=== PATIENT | male | born 1950 | race Caucasian/White ===

== ENCOUNTER 2016-11-04 16:35 | Inpatient (IN) ==
--- NOTE | 2016-11-04 18:54 | Emergency Department Note ---
Disposition Clinical Impression: Confusion, Asterixis, Acute kidney injury, Thrombocytopenia Altered mental status Qualifiers: Altered mental status type: unspecified Qualified Code(s): R41.82 - Altered mental status, unspecified Disposition: Admitted As Inpatient Condition: Good Time of Disposition: 21:59 Altered Mental Status HPI - General Chief Complaint: ED Altered Mental Status Stated Complaint: Lethargic, confused Time Seen by Provider: 11/04/16 18:21 Source: patient, family Limitations: no limitations Nursing Notes Reviewed: Yes Vital Signs Reviewed: Yes - History of Present Illness HPI Narrative: 66-year-old male history of cirrhosis, esophageal varices status post banding, history of hepatic encephalopathy presents with confusion weakness. Patient is unable to provide a significant history. is at bedside to assist. Patient was seen and evaluated by his hematologists earlier today. No labs are drawn at that time was recommended to come here for further evaluation. Why states he has been more week and confused over the past several days. He has been weak since August when he had esophageal banding. He has been progressively weaker as well as not acting quite himself. There is reports of some visual hallucinations as well. She denies any recent fever or cough. Patient denies any pain such as chest pain, abdominal pain or shortness of breath. His abdomen is soft and nontender nondistended. He has a febrile here. There is no concern for spontaneous bacterial peritonitis at this time. He is alert and oriented to person only. He does have some asterixis and scleral ictera. CT head, EKG basic labs. Will also get liver enzymes and ammonia level. Patient is on lactulose has been taken 3 times a day. MD complaint: altered mental status, confusion, weakness - Related Data Home Medications Medication Instructions Recorded Confirmed Furosemide [Lasix] 40 mg PO DAILY 02/24/15 11/04/16 Spironolactone [Aldactone] 25 mg PO DAILY 02/24/15 11/04/16 Cholecalciferol (D-3) [Vitamin D] 1,000 unit PO DAILY 11/04/16 11/04/16 DULoxetine [Cymbalta] 30 mg PO HS 11/04/16 11/04/16 Lactulose 10 gm PO TID 11/04/16 11/04/16 Multivitamin [Multi-Day Vitamins] 1 each PO DAILY 11/04/16 11/04/16 OxyCODONE Immed Rel [Roxicodone 5 5 mg PO Q4H PRN 11/04/16 11/04/16 MG] Oxycodone HCl 10 mg PO Q4H PRN 11/04/16 11/04/16 Pantoprazole Sodium [Protonix] 40 mg PO QAM 11/04/16 11/04/16 Propranolol [Inderal] 20 mg PO TID 11/04/16 11/04/16 Allergies Allergy/AdvReac Type Severity Reaction Status Date / Time aspirin [ASA] AdvReac See Verified 02/18/15 10:11 Comments BACTRIM AdvReac Unknown UNKNOWN Uncoded 02/24/15 15:16 Review of Systems: As Per HPI Limitations: ROS unobtainable due to patients medical condition Past Medical History - Past Medical History Source: obtained from family Medical history: Reports: arthritis, GERD, hypertension, liver disease Surgical history: Reports: appendectomy, hip replacement Psychiatric history: Reports: anxiety, depression - Social History Smoking Status: Former smoker Smokeless Tobacco Status: No Alcohol use: Reports: none, heavy, recent Drug use: Reports: none Physical Exam - General Limitations: no limitations General appearance: alert, in no apparent distress - Head Head exam: atraumatic, normocephalic, normal inspection - Eye Eye exam: Present: normal appearance, EOMI, scleral icterus - ENT ENT exam: normal exam, normal oropharynx, mucous membranes moist - Neck Neck exam: Present: normal inspection, full ROM - Chest Chest inspection: Present: normal inspection, symmetric chest wall rise. Absent : tenderness - Respiratory Respiratory exam: Present: normal lung sounds bilaterally - Cardiovascular Cardiovascular exam: Present: regular rate, normal rhythm, normal heart sounds - Abdominal Exam Abdominal exam: Present: soft, Non-Tender, normal bowel sounds, organomegaly. Absent: tenderness, distention, guarding, rebound, rigidity, Escobedo's sign, Rovsing's sign, tenderness at McBurney's Point - Expanded Lower Extremity Exam Gait: unable to bear weight - Neurological Exam Neurological exam: Present: alert - Expanded Neurological Exam Patient oriented to: Present: person. Absent: place, time Cerebellar function: wide-based gait (shuffling with assistance of 2 providers) - Skin Skin exam: Present: warm, dry, intact, normal color, pallor, other (mild jaundice appearance) Course - Reevaluation(s) Reevaluation #1: Patient's only alert and oriented to himself. This appears to be near his baseline. is in the room states he has more confused with a antiglare. Patients afebrile. His abdomen is nondistended nontender. I do not suspect spontaneous bacterial peritonitis. He has some asterixis on examination to consider hepatic encephalopathy. He has been taking lactulose 3 times a day. They deny any recent fall or trauma. Altered mental status workup initiated with LFT and ammonia level.. He has a slight elevation of his total bilirubin 2.5. It has been elevated significantly in the past. His creatinine level is also elevated 1.45 peers consistent with a acute kidney injury. The BUN is not significantly elevated to believe that this is a uremic encephalopathy. His ammonia levels within normal limits this could likely be contributing to his altered mental status. He may need adjustment of his lactulose. He has a chronic thrombocytopenia is higher than the past. Otherwise he has no obvious signs of infection. Urinalysis shows positive for opiates and benzo which is consistent with his home medication. Patient will be admitted for further evaluation and management. Impression is altered mental status, confusion, chronic thrombocytopenia and suspected hepatic encephalopathy. Time: 22:32 - Consultations Consultation #1: Spoke with on-call hospitalist luis Conde to admit for confusion, AMS, asterixis, STERLING, suspect hepatic encephalopathy. No further orders at this time Time: 22:00 Vital Signs Temperature 97.4 F L 11/04/16 17:00 Pulse Rate 62 11/04/16 17:00 Respiratory Rate 14 11/04/16 17:00 Blood Pressure 109/70 11/04/16 17:00 O2 Sat by Pulse Oximetry 94 11/04/16 17:00 Temperature 97.4 F L 11/04/16 17:00 Pulse Rate 64 11/04/16 22:26 Respiratory Rate 16 11/04/16 22:42 Blood Pressure 110/60 11/04/16 22:42 O2 Sat by Pulse Oximetry 98 11/04/16 22:26 Oxygen Delivery Oxygen Delivery Room Air Altered Mental Status - Medical Records Medical records reviewed: Yes I reviewed the patient's medical records. - Lab Data Lab results reviewed: Yes I reviewed the patient's lab results. Result diagrams: 11/04/16 18:57 11/04/16 18:57 Lab Results 11/04/16 11/04/16 11/04/16 Range/Units 18:57 18:57 18:57 WBC 5.2 (4.3-11.1) K/mcL RBC 4.21 (4.19-5.50) M/mcL Hgb 12.3 L (12.9-16.9) g/dL Hct 37.6 (37.5-50.1) % MCV 89.3 (83.0-100.0) fL MCH 29.2 (28.0-33.3) pg MCHC 32.7 (31.6-35.5) g/dL RDW 17.8 H (11.5-14.5) % Plt Count 95 L (140-400) K/mcL MPV 10.0 (9.4-12.4) fL Immature Gran % 0.2 (0-4) % Seg Neutrophils % 42.5 % Lymphocytes % 35.4 % Monocytes % 16.0 % Eosinophils % 4.6 % Basophils % 1.3 % Neutrophils # 2.2 (1.6-8.9) K/mcL Lymphocytes # 1.8 (0.6-4.6) K/mcL Monocytes # 0.8 (0.0-1.3) K/mcL Eosinophils # 0.2 (0.0-0.6) K/mcL Basophils # 0.1 (0.0-0.2) K/mcL Platelet Estimate Decreased L (Normal) Immature Plt Fraction 2.9 (1.1-6.1) % Sodium 135 L (136-145) mEq/L Potassium 4.2 (3.5-4.5) mEq/L Chloride 103 (98-109) mEq/L Carbon Dioxide 25 (19-29) mEq/L BUN 24 (8-26) mg/dL Creatinine 1.45 H (0.72-1.25) mg/dL Est GFR ( Amer) 59 L (> 60) Est GFR (Non-Af Amer) 48 L (> 60) BUN/Creatinine Ratio 17 (6-26) Glucose 125 H (70-99) mg/dL Calculated Osmolality 286 (280-300) Calcium 10.1 (8.6-10.8) mg/dL Total Bilirubin (0.2-1.2) mg/dL Direct Bilirubin (0.0-0.5) mg/dL Indirect Bilirubin (0.0-1.2) mg/dL AST (5-34) Units/L ALT (0-55) Units/L Alkaline Phosphatase (38-126) Units/L Ammonia (18-72) mcmol/L Troponin I 0.01 (0-0.03) ng/mL Serum Total Protein (6.0-8.3) g/dL Albumin (3.5-5.0) g/dL Globulin (2.4-3.5) g/dL Albumin/Globulin Ratio (1.1-2.2) Urine Color (Yellow) Urine Clarity (Clear) Urine pH (5.0-8.0) pH Units Ur Specific [place] (1.010-1.025) Urine Protein (Neg-Trace) mg/dL Urine Glucose (UA) (Normal) mg/dL Urine Ketones (Negative) mg/dL Urine Blood (Negative) Urine Nitrite (Negative) Urine Bilirubin (Negative) Urine Urobilinogen (Normal) mg/dL Ur Leukocyte Esterase (Negative) Urine Microscopic RBC (0-3) per hpf Urine Microscopic WBC (0-3) per hpf Ur Squamous Epith Cells (None-Few) per lpf Urine Bacteria (None-Few) per hpf Hyaline Casts (None-Few) per lpf Urine Yeast Ur Culture Indicated? (NO) Urine Opiates Screen (Mjbpix=361) ng/mL Ur Barbiturates Screen (Qhfzrg=710) ng/mL Ur Phencyclidine Scrn (Cutoff=25) ng/mL Ur Amphetamines Screen (Xltrmb=2198) ng/mL U Benzodiazepines Scrn (Twlgua=843) ng/mL Urine Cocaine Screen (Cutoff= 300) ng/mL U Marijuana (THC) Screen (Cutoff = 50) ng/mL Ethyl Alcohol (0-10) mg/dL 11/04/16 11/04/16 11/04/16 Range/Units 18:57 18:57 21:19 WBC (4.3-11.1) K/mcL RBC (4.19-5.50) M/mcL Hgb (12.9-16.9) g/dL Hct (37.5-50.1) % MCV (83.0-100.0) fL MCH (28.0-33.3) pg MCHC (31.6-35.5) g/dL RDW (11.5-14.5) % Plt Count (140-400) K/mcL MPV (9.4-12.4) fL Immature Gran % (0-4) % Seg Neutrophils % % Lymphocytes % % Monocytes % % Eosinophils % % Basophils % % Neutrophils # (1.6-8.9) K/mcL Lymphocytes # (0.6-4.6) K/mcL Monocytes # (0.0-1.3) K/mcL Eosinophils # (0.0-0.6) K/mcL Basophils # (0.0-0.2) K/mcL Platelet Estimate (Normal) Immature Plt Fraction (1.1-6.1) % Sodium (136-145) mEq/L Potassium (3.5-4.5) mEq/L Chloride (98-109) mEq/L Carbon Dioxide (19-29) mEq/L BUN (8-26) mg/dL Creatinine (0.72-1.25) mg/dL Est GFR ( Amer) (> 60) Est GFR (Non-Af Amer) (> 60) BUN/Creatinine Ratio (6-26) Glucose (70-99) mg/dL Calculated Osmolality (280-300) Calcium (8.6-10.8) mg/dL Total Bilirubin 2.5 H (0.2-1.2) mg/dL Direct Bilirubin 1.3 H (0.0-0.5) mg/dL Indirect Bilirubin 1.2 (0.0-1.2) mg/dL AST 79 H (5-34) Units/L ALT 35 (0-55) Units/L Alkaline Phosphatase 172 H (38-126) Units/L Ammonia 63 (18-72) mcmol/L Troponin I (0-0.03) ng/mL Serum Total Protein 7.6 (6.0-8.3) g/dL Albumin 2.9 L (3.5-5.0) g/dL Globulin 4.7 H (2.4-3.5) g/dL Albumin/Globulin Ratio 0.6 L (1.1-2.2) Urine Color Yellow (Yellow) Urine Clarity Cloudy A (Clear) Urine pH 6.0 (5.0-8.0) pH Units Ur Specific [place] 1.014 (1.010-1.025) Urine Protein Negative (Neg-Trace) mg/dL Urine Glucose (UA) Normal (Normal) mg/dL Urine Ketones Negative (Negative) mg/dL Urine Blood Negative (Negative) Urine Nitrite Negative (Negative) Urine Bilirubin Negative (Negative) Urine Urobilinogen Normal (Normal) mg/dL Ur Leukocyte Esterase Negative (Negative) Urine Microscopic RBC 0-3 (0-3) per hpf Urine Microscopic WBC 0-3 (0-3) per hpf Ur Squamous Epith Cells Moderate H (None-Few) per lpf Urine Bacteria None Seen (None-Few) per hpf Hyaline Casts None Seen (None-Few) per lpf Urine Yeast Test Not Performed Ur Culture Indicated? NO (NO) Urine Opiates Screen (Nqnusi=663) ng/mL Ur Barbiturates Screen (Jhugab=265) ng/mL Ur Phencyclidine Scrn (Cutoff=25) ng/mL Ur Amphetamines Screen (Xqsjfa=3772) ng/mL U Benzodiazepines Scrn (Vufrfv=398) ng/mL Urine Cocaine Screen (Cutoff= 300) ng/mL U Marijuana (THC) Screen (Cutoff = 50) ng/mL Ethyl Alcohol < 10 (0-10) mg/dL 11/04/16 Range/Units 21:19 WBC (4.3-11.1) K/mcL RBC (4.19-5.50) M/mcL Hgb (12.9-16.9) g/dL Hct (37.5-50.1) % MCV (83.0-100.0) fL MCH (28.0-33.3) pg MCHC (31.6-35.5) g/dL RDW (11.5-14.5) % Plt Count (140-400) K/mcL MPV (9.4-12.4) fL Immature Gran % (0-4) % Seg Neutrophils % % Lymphocytes % % Monocytes % % Eosinophils % % Basophils % % Neutrophils # (1.6-8.9) K/mcL Lymphocytes # (0.6-4.6) K/mcL Monocytes # (0.0-1.3) K/mcL Eosinophils # (0.0-0.6) K/mcL Basophils # (0.0-0.2) K/mcL Platelet Estimate (Normal) Immature Plt Fraction (1.1-6.1) % Sodium (136-145) mEq/L Potassium (3.5-4.5) mEq/L Chloride (98-109) mEq/L Carbon Dioxide (19-29) mEq/L BUN (8-26) mg/dL Creatinine (0.72-1.25) mg/dL Est GFR ( Amer) (> 60) Est GFR (Non-Af Amer) (> 60) BUN/Creatinine Ratio (6-26) Glucose (70-99) mg/dL Calculated Osmolality (280-300) Calcium (8.6-10.8) mg/dL Total Bilirubin (0.2-1.2) mg/dL Direct Bilirubin (0.0-0.5) mg/dL Indirect Bilirubin (0.0-1.2) mg/dL AST (5-34) Units/L ALT (0-55) Units/L Alkaline Phosphatase (38-126) Units/L Ammonia (18-72) mcmol/L Troponin I (0-0.03) ng/mL Serum Total Protein (6.0-8.3) g/dL Albumin (3.5-5.0) g/dL Globulin (2.4-3.5) g/dL Albumin/Globulin Ratio (1.1-2.2) Urine Color (Yellow) Urine Clarity (Clear) Urine pH (5.0-8.0) pH Units Ur Specific [place] (1.010-1.025) Urine Protein (Neg-Trace) mg/dL Urine Glucose (UA) (Normal) mg/dL Urine Ketones (Negative) mg/dL Urine Blood (Negative) Urine Nitrite (Negative) Urine Bilirubin (Negative) Urine Urobilinogen (Normal) mg/dL Ur Leukocyte Esterase (Negative) Urine Microscopic RBC (0-3) per hpf Urine Microscopic WBC (0-3) per hpf Ur Squamous Epith Cells (None-Few) per lpf Urine Bacteria (None-Few) per hpf Hyaline Casts (None-Few) per lpf Urine Yeast Ur Culture Indicated? (NO) Urine Opiates Screen Positive H (Fnmmbn=291) ng/mL Ur Barbiturates Screen Negative (Beyhls=271) ng/mL Ur Phencyclidine Scrn Negative (Cutoff=25) ng/mL Ur Amphetamines Screen Negative (Hhgrsl=3440) ng/mL U Benzodiazepines Scrn Positive H (Gbfroh=811) ng/mL Urine Cocaine Screen Negative (Cutoff= 300) ng/mL U Marijuana (THC) Screen Negative (Cutoff = 50) ng/mL Ethyl Alcohol (0-10) mg/dL - Radiology Data Radiology results reviewed: Yes I reviewed the patient's radiology results. Chest X-Ray 11/04/16 17:44 IMPRESSION: No acute process. D/ / Efra Sales MD / Efra Sales MD Interpreting Provider: Efra Sales MD Head CT 11/04/16 18:37 IMPRESSION: No acute intracranial abnormality. D/ / 11/04/2016 19:32:10 Jos Hairston MD / [facility] Interpreting Provider: Jos Hairston MD - EKG Data EKG attestation: Yes I reviewed and interpreted this EKG. EKG results narrative: EKG was performed 1800 sinus rhythm 61 bpm right bundle branch block QRS [address] elevations or depression. Other intervals are within normal limits. Compared to old EKG 08/28/2016 shows right bundle branch block as well as resolved ST T-wave changes. No acute ischemic changes seen on today's EKG. Attestation Statement - Attestation Attestation: I, Issa Bernabe, examined this patient and my medical decision-making was reviewed with the MINERAL ENGINEER/PA/Advanced Practice Nurse/Resident Physician. I agree with the documented findings, disposition and treatment plan as described except to the extent set forth below. 66-year-old male brought to the emergency department for concerns of lethargy, confusion. states that he has had similar symptoms in the past with hyperammonemia. Patient has a history of hepatic encephalopathy which was similar to today's symptoms. Patient takes lactulose at the residential but is unclear as to how often. Patient has history of liver disease with varices which have required banding in the past. states he has not had hematochezia or hematemesis. During the exam the patient seems confused, staring into space, he has asterixis on exam. CT of his head was negative for acute fracture or intracranial hemorrhage. Patient has elevated bilirubin level on laboratory evaluation. Patient will be admitted to the hospital for further care and evaluation of his altered mental status.
[2016-11-04 19:06] LABS: Immature Granulocytes % 0.2 % (0-4); Immature Platelets 2.9 % (1.1-6.1)
[2016-11-04 19:16] LABS: Basophils # 0.1 K/mcL (0.0-0.2); Basophils % 1.3 %; Eosinophils # 0.2 K/mcL (0.0-0.6); Eosinophils % 4.6 %; Hematocrit 37.6 % (37.5-50.1); Hemoglobin 12.3 g/dL (12.9-16.9); Lymphocytes # 1.8 K/mcL (0.6-4.6); Lymphocytes % 35.4 %; Mean Corpuscular HGB Conc 32.7 g/dL (31.6-35.5); Mean Corpuscular Hemoglobin 29.2 pg (28.0-33.3); Mean Corpuscular Volume 89.3 fL (83.0-100.0); Monocytes # 0.8 K/mcL (0.0-1.3); Neutrophils # 2.2 K/mcL (1.6-8.9); Red Blood Count 4.21 M/mcL (4.19-5.50); Red Cell Distribution Width 17.8 % (11.5-14.5); Segmented Neutrophils % 42.5 %
[2016-11-04 19:25] LABS: Calcium 10.1 mg/dL (8.6-10.8); Potassium 4.2 mEq/L (3.5-4.5)
[2016-11-04 19:26] LABS: Alanine Aminotransferase 35 Units/L (0-55); Albumin 2.9 g/dL (3.5-5.0); Albumin/Globulin Ratio 0.6 (1.1-2.2); Alkaline Phosphatase 172 Units/L (38-126); Aspartate Amino Transferase 79 Units/L (5-34); Bilirubin,Direct 1.3 mg/dL (0.0-0.5); Bilirubin,Indirect 1.2 mg/dL (0.0-1.2); Globulin 4.7 g/dL (2.4-3.5); Total Protein 7.6 g/dL (6.0-8.3)
[2016-11-04 19:28] LABS: Bilirubin,Total 2.5 mg/dL (0.2-1.2); Ethanol < 10 mg/dL (0-10)
[2016-11-04 19:31] LABS: Platelet Count 95 K/mcL (140-400)
[2016-11-04 19:33] LABS: Platelet Estimate Decreased (Normal)
[2016-11-04 21:29] LABS: Bilirubin,Urine Negative (Negative); Blood,Urine Negative (Negative); Clarity,Urine Cloudy (Clear); Color,Urine Yellow (Yellow); Glucose,Urine (UA) Normal (Normal); Ketones,Urine Negative (Negative); Leukocyte Esterase,Urine Negative (Negative); Nitrite,Urine Negative (Negative); Protein,Urine Negative (Neg-Trace); Specific Gravity,Urine 1.014 (1.010-1.025); Urobilinogen,Urine Normal (Normal)
[2016-11-04 21:31] LABS: Bacteria,Urine None Seen per hpf (None-Few); Hyaline Casts,Urine None Seen per lpf (None-Few); RBC,Urine 0-3 per hpf (0-3); Squamous Epithelial Cell,Urine Moderate per lpf (None-Few); WBC,Urine 0-3 per hpf (0-3)
[2016-11-04 21:34] LABS: Amphetamine Screen,Urine Negative ng/mL (Cutoff=1000); Barbiturate Screen,Urine Negative ng/mL (Cutoff=200); Benzodiazepines Screen,Urine Positive ng/mL (Cutoff=200); Cannabinoid Screen,Urine Negative ng/mL (Cutoff = 50); Cocaine Screen,Urine Negative ng/mL (Cutoff= 300); Opiate Screen,Urine Positive ng/mL (Cutoff=300); Phencyclidine Screen,Urine Negative ng/mL (Cutoff=25)
[2016-11-04] MEDS ORDERED: 0.9 % Sodium Chloride 1,000 ML IVC ONE (21:54)
[2016-11-04] MEDS ORDERED: *HR* OxyCODONE Immed Rel 5 MG TABLET PO ONE (22:08)
[2016-11-04] MEDS ORDERED: Ondansetron 4 MG/2 ML VIAL IVP PRN (23:19)
--- NOTE | 2016-11-04 23:24 | Internal Med History&Physical ---
Addendum entered and electronically signed by Solo Sun DO 11/05/16 01:03: [email or web address] automatically changed the date of encounter when the note was signed after midnight. The correct Date of Encounter is 11/04/16 NOT 11/05/16. Original Note: <Solo Sun - Last Filed: 11/05/16 00:39> Date of Encounter: 11/05/16 Time of Encounter: 22:15 Assessment and Plan (1) Encephalopathy Current visit: Yes Status: Acute - Metabolic encephalopathy. - Likely secondary hepatic encephalopathy given patient's history of liver cirrhosis and positive asterixis on exam. - Medications probably also play some role given patient's UDS positive for opiate and benzodiazepam. - Less likely from infection like pneumonia or UTI given normal WBC with negative CXR and UA. - CT head found no acute intracranial abnormality. - Check TSH. - Continue lactulose. The goal is to have bowel movement three to four times a day. - Hold opiates medication. - Admit to hospital for close monitoring. Time spent on admission: 40 minutes. (2) Acute kidney injury Current visit: Yes Status: Acute - SCr 1.45 on admission, which is worse compared to 0.74 on 08/28/16. - Likely prerenal secondary to diuretic use. - Hold diuretics and avoid nephrotoxin. - Patient had received 1L NS bolus in ED. May consider hydration with more IV fluid. - Given reported difficulty to urinate, will obtain retroperitoneal US to evaluate possible postrenal cause of STERLING. - Continue to monitor renal function and electrolytes. (3) Liver cirrhosis Current visit: Yes Status: Chronic - With known history of alcohol abuse. - No significant ascites on physical exam. - Will check PT/PTT/INR, which is better reflection of liver function. Qualifiers: Hepatic cirrhosis type: alcoholic cirrhosis Ascites presence: without ascites Qualified Code(s): K70.30 - Alcoholic cirrhosis of liver without ascites (4) Esophageal varices Current visit: Yes Status: Chronic - EGD from 05/20/15 found grade I varices in the middle third of the esophagus, with lower third having scarring from prior banding. Portal hypertensive gastropathy also noted. - Continue PPI. Qualifiers: Esophageal varices type: secondary Esophageal varices bleeding: without bleeding Qualified Code(s): I85.10 - Secondary esophageal varices without bleeding (5) DVT prophylaxis Current visit: Yes Status: Acute - Given patient's thrombocytopenia and unknown coagulation at this time, will use calf pump as mechanical DVT prophylaxis for now. Internal Medicine - H&P: HPI Chief complaint: Altered mental status Admitted From: Emergency Dept Plans for Post Hospital Care: Home History of present illness: Mr. Cha is a 66 year old male with PMH of HTN, HLD, pre-DM and liver cirrhosis with history of alcohol abuse and esophageal varices s/p banding multiple times. Patient was brought to [place] ED for confusion and generalized weakness. On the encounter in ED, patient is alert and orient to self and no family member at bedside so part of history was obtained from reviewing medical records. Per ED note, patient's reported patient has been progressively weaker and not quite himself since esophageal banding in August. There is report of some visual hallucination per his . Patient reports having chronic left hip pain but denies chest pain/discomfort, significant shortness of breath, cough, fever, chills, nausea. Patient reports taking lactulose and having diarrheal bowel movements three times a day. Patient reports urinating twice a day and does have occasional difficulty urinating but denies dysuria. CT head and CXR in ED found no acute abnormality. Patient received 1L IV NS bolus in ED. Past Med Surg Social Fam HX - Past Medical History Source: old records reviewed Medical history: arthritis, GERD, hypertension, liver disease Psychiatric history: anxiety, depression - Past Surgical History Surgical History: appendectomy, hip replacement (Left), other (EGD with esophageal bandings.) - Social History Smoking Status: Former smoker Smokeless Tobacco Status: No Alcohol use: none, heavy, recent Drug use: none - Family History Father Hx Family Neurologic Disorders: Yes (Brain aneurysm) Sister Hx Family Cardiac Disorders: Yes ([place]) Mother Hx Family Neurologic Disorders: Yes (Cerebral hemorrhage) Internal Medicine - H&P: Meds Furosemide [Lasix] 40 mg PO DAILY 02/24/15 [History] Spironolactone [Aldactone] 25 mg PO DAILY 02/24/15 [History] Cholecalciferol (D-3) [Vitamin D] 1,000 unit PO DAILY 11/04/16 [History] DULoxetine [Cymbalta] 30 mg PO HS 11/04/16 [History] Lactulose 10 gm PO TID 11/04/16 [History] Multivitamin [Multi-Day Vitamins] 1 each PO DAILY 11/04/16 [History] OxyCODONE Immed Rel [Roxicodone 5 MG] 5 mg PO Q4H PRN 11/04/16 [History] Oxycodone HCl 10 mg PO Q4H PRN 11/04/16 [History] Pantoprazole Sodium [Protonix] 40 mg PO QAM 11/04/16 [History] Propranolol [Inderal] 20 mg PO TID 11/04/16 [History] 3 Allergy/AdvReac Type Severity Reaction Status Date / Time aspirin [ASA] AdvReac See Verified 02/18/15 10:11 Comments BACTRIM AdvReac Unknown UNKNOWN Uncoded 02/24/15 15:16 ROS unobtainable: due to mental status (Limited given patient's current mental status.) - Constitutional Vitals: Temp Pulse Resp BP Pulse Ox 97.4 F L 64 16 110/60 98 11/04/16 17:00 11/04/16 22:26 11/04/16 22:42 11/04/16 22:42 11/04/16 22:26 General appearance: Present: cooperative, A&O X 1, no acute distress - Head Head exam: Present: atraumatic, normocephalic - Eye Eye exam: Present: EOMI, PERRL, conjuntiva pink, sclera anicteric - ENT ENT exam: Present: mucous membranes dry - Neck Neck exam general surgery: Present: supple, trachea midline. Absent: lymphadenopathy - Respiratory Respiratory exam: Present: CTAB. Absent: accessory muscle use, rales, rhonchi, wheezes - Cardiovascular Cardiovascular exam: Present: RRR, +S1, +S2. Absent: diastolic murmur, gallop, rubs, systolic murmur - GI/Abdominal GI/Abdominal exam: Present: normal bowel sounds, soft, no peritoneal signs. Absent: distended, tenderness - Extremities Exam Extremities exam: Present: pedal edema (BLE non-pitting edema, L > R, per patient, it's chronic), warm, radial pulses palpable and symmetrical. Absent: calf tenderness, cyanotic - Neurological Exam Neurological exam: Present: CN II-XII intact, no focal deficits. Absent: pronater drift, facial droop, speech deficit Additional comments: - Bilateral asterixis noted. - Skin Skin exam: Present: dry, intact, warm Internal Med - H&P Results - Labs CBC & Chem 7: 11/04/16 18:57 11/04/16 18:57 <Russell Mae - Last Filed: 11/05/16 02:57> Date of Encounter: 11/05/16 Time of Encounter: 02:00 ROS unobtainable: due to mental status - Constitutional Vitals: Temp Pulse Resp BP Pulse Ox 97.7 F 68 18 114/68 94 11/04/16 23:35 11/04/16 23:35 11/04/16 23:35 11/04/16 23:35 11/04/16 23:35 General appearance: Present: cooperative, A&O X 1, pleasant, no acute distress. Absent: answers questions appropriately - Head Head exam: Present: atraumatic, normal inspection - Eye Eye exam: Present: EOMI, PERRL. Absent: scleral icterus Pupils: Present: normal accommodation - ENT ENT exam: Present: mucous membranes dry, normal exam - Neck Neck exam general surgery: Present: full ROM, supple. Absent: lymphadenopathy, nuchal rigidity - Expanded Neck Exam Neck exam: Present: carotid bruit - Respiratory Respiratory exam: Present: CTAB. Absent: rales, rhonchi, wheezes - Cardiovascular Cardiovascular exam: Present: RRR, +S1, +S2. Absent: systolic murmur - GI/Abdominal GI/Abdominal exam: Present: normal bowel sounds, soft, no peritoneal signs. Absent: mass, tenderness - Extremities Exam Extremities exam: Present: pedal edema, warm. Absent: calf tenderness, joint swelling, tenderness - Back Exam Back exam: Absent: CVA tenderness (L), CVA tenderness (R) - Neurological Exam Neurological exam: Present: altered. Absent: oriented X3 - Psychiatric Psychiatric exam: Present: flat affect Internal Med - H&P Results - Labs CBC & Chem 7: 11/04/16 18:57 11/04/16 18:57 - Diagnostic Studies Chest x-ray Status: image reviewed by me (negative) - Attending Attestation I discussed the patient [place], PMH, ROS, lab data, and exam findings with Dr. Sun. I then saw and examined patient independently as well. Patient offers no history and is very confused. He is in no distress. Based upon history, exam, and work-up, I feel he has encephalopathy from his liver dysfunction as well as medication (opiates and benzodiazepenes). I agree with scheduled Lactulose. Additionally, we will minimize his home meds for now and hold opiates. Note, I do not see BZD in his home meds list. I'm unsure if BZD are prescribed or if he is taking someone else's. Other than my above comments and noted exam findings, I agree with Dr. Sun.
[2016-11-05] MEDS: Lactulose Oral Soln 20 GM/30 ML UDC PO SCH ×3 (00:17→20:23)
[2016-11-05 04:25] LABS: Mean Corpuscular Volume 89.5 fL (83.0-100.0)
[2016-11-05 04:27] LABS: Hematocrit 34.1 % (37.5-50.1); Hemoglobin 11.1 g/dL (12.9-16.9); Mean Corpuscular HGB Conc 32.6 g/dL (31.6-35.5); Mean Corpuscular Hemoglobin 29.1 pg (28.0-33.3); Mean Platelet Volume 10.1 fL (9.4-12.4); Red Blood Count 3.81 M/mcL (4.19-5.50); Red Cell Distribution Width 17.5 % (11.5-14.5)
[2016-11-05 04:41] LABS: Alanine Aminotransferase 31 Units/L (0-55); Albumin 2.6 g/dL (3.5-5.0); Albumin/Globulin Ratio 0.7 (1.1-2.2); Alkaline Phosphatase 149 Units/L (38-126); Aspartate Amino Transferase 70 Units/L (5-34); BUN/Creatinine Ratio 19 (6-26); Blood Urea Nitrogen 22 mg/dL (8-26); Calcium 9.6 mg/dL (8.6-10.8); Carbon Dioxide 26 mEq/L (19-29); Chloride 106 mEq/L (98-109); Glucose 95 mg/dL (70-99); Osmolality,Calculated 293 (280-300); Potassium 3.8 mEq/L (3.5-4.5); Sodium 140 mEq/L (136-145); Total Protein 6.6 g/dL (6.0-8.3); eGFR For African Americans > 60 (> 60); eGFR For Non-African Americans > 60 (> 60)
[2016-11-05 04:43] LABS: INR 1.3; Prothrombin Time 14.5 Seconds (9.4-12.1)
[2016-11-05 05:09] LABS: Bilirubin,Total 2.2 mg/dL (0.2-1.2)
[2016-11-05] MEDS ORDERED: *HR* Heparin 5,000 UNIT/ML VIAL SQ SCH (06:00)
--- NOTE | 2016-11-05 17:10 | Electrocardiograph Report ---
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
--- NOTE | 2016-11-05 19:13 | Event Note ---
Date of Encounter: 11/05/16 Time of Encounter: 14:35 She was seen and assessed at 1435 today. I did speak with the patient's . She states that he has been home from [place] at home for about 7 days. She reports that he was okay until he was home about 4-5 days then he became weak and was unable to walk anymore, she reports that he sleeps all the time. Patient was placed in [place] after being inpatient at [facility] and then transferred to [place] for esophageal varices banding. Patient drank a fifth of whiskey a day for about 40 years and has not had a drink since September. She was extremely drowsy and does arouse to verbal stimuli and does answer questions appropriately, he is alert and oriented 3. His speech is quiet and soft and he is slow to respond. says this is his normal baseline. He was brought to the emergency department for confusion and generalized weakness, states that he has not changed since arrival but remains at his normal baseline. She states over the last 4-5 days he has been having visual hallucinations and frog jumping in the living room people in the windows. She reports a progressive weakening and change in mental status since bleeding varices and banding in August. Due to patient's metabolic encephalopathy, his medications have been held. The was pleading the patient's case saying he had vertebral fractures and needed his oxycodone, I explained to her that we were attempting to evaluate his mental status and did not want to cloud the issue with sedation. CT head was negative, as well as chest x-ray. Patient's ammonia level was within normal limits, TSH is within normal limits, electrolytes are within normal limits and renal function has returned to within normal limits. Patient has no leukocytosis, in fact white count is 2.8. Platelet count is 17.5, and it appears the patient has chronic thrombocytopenia. We will continue to evaluate this and transfuse as needed. A shunt presents with acute kidney injury, serum creatinine and GFR have both returned to normal, 1.17 and greater than 70. Retroperitoneal ultrasound showed no hydronephrosis, and atrophic left kidney, and a large post void residual. These are nonacute findings suggestive of a CK today. Patient received IV fluid bolus in the emergency department. He is not on fluids at this time. We will continue to monitor his labs. Physical therapy evaluated the patient and recommend skilled PT services in the home. Patient was discharged from [facility] with home health, but the cannot recall the name of the agency. We will reestablish prior to discharge. Patient will continue telemetry, also dating medications have been held. Since renal function has returned to normal. We can restart his antihypertensive medications and continue labs and condition to monitor for need for change. Patient will continue lactulose. He is also on heparin for DVT prophylaxis and omeprazole for GI prophylaxis.
[2016-11-06 04:59] LABS: Hemoglobin 11.1 g/dL (12.9-16.9); Mean Corpuscular Hemoglobin 29.1 pg (28.0-33.3); Mean Corpuscular Volume 88.7 fL (83.0-100.0)
[2016-11-06 05:01] LABS: Eosinophils # 0.1 K/mcL (0.0-0.6); Eosinophils % 3.4 %; Hematocrit 33.8 % (37.5-50.1); Immature Platelets 3.6 % (1.1-6.1); Lymphocytes # 0.9 K/mcL (0.6-4.6); Lymphocytes % 29.5 %; Mean Corpuscular HGB Conc 32.8 g/dL (31.6-35.5); Mean Platelet Volume 10.1 fL (9.4-12.4); Monocytes # 0.4 K/mcL (0.0-1.3); Monocytes % 12.4 %; Neutrophils # 1.6 K/mcL (1.6-8.9); Red Blood Count 3.81 M/mcL (4.19-5.50); Red Cell Distribution Width 17.5 % (11.5-14.5); Segmented Neutrophils % 53.7 %
[2016-11-06 05:02] LABS: Platelet Count 63 K/mcL (140-400)
[2016-11-06 05:07] LABS: Hemoglobin A1C 5.2 %
[2016-11-06] MEDS: Furosemide 40 MG TABLET PO SCH (09:02)
[2016-11-06] MEDS: Multivit/Ca/Min/Fe/FA 1 TAB TABLET PO SCH (09:02)
[2016-11-06] MEDS: Cholecalciferol (D-3) 1,000 UNIT TABLET PO SCH (09:02)
[2016-11-06] MEDS: Spironolactone 25 MG TABLET PO SCH (09:02)
[2016-11-06] MEDS: Lactulose Oral Soln 20 GM/30 ML UDC PO SCH ×2 (09:02→20:13)
--- NOTE | 2016-11-06 17:19 | Internal Med Progress Note ---
Date of Encounter: 11/06/16 Time of Encounter: 13:40 - Assessment and plan (1) Encephalopathy Current Visit: Yes Status: Acute Assessment and plan: states that pt is back to his baseline. He does seem to be more alert than yesterday, however, he does still seem altered to me. states that he does not talk a lot. His urine is negative, labs are WNL. Pt states that he wants to go home. Sedating medications are still held. Contine to monitor pt condition and labs Continue telemetry (2) Thrombocytopenia Current Visit: Yes Status: Chronic Assessment and plan: reports that he has had low platelet count for "a while". Pt was seen by heme/onc at [facility], but was not able to complete the appointment due to being sent to the ER then admitted due to labs. is concerned with his sudden drop in the last 2 days from 95-63 and has requested to be seen by heme/ onc here before pt goes home. Pt has alcoholic cirrhosis which is the most likely cause. I appreciate their consult and any recommendations. Monitor labs in the a.m. consult in to Hematology/Oncology (3) Esophageal varices Current Visit: Yes Status: Chronic Assessment and plan: Chronic. Continue PPI. Pt is to follow up with [facility] soon for scope. states that he had banding approximately one month ago and pt is to follow up one month post procedure for follow up. No appointment has been made yet. Pt is not bleeding currently, Hgb and vitals are stable. continue to monitor. Qualifiers: Esophageal varices type: secondary Esophageal varices bleeding: without bleeding Qualified Code(s): I85.10 - Secondary esophageal varices without bleeding (4) Liver cirrhosis Current Visit: Yes Status: Chronic Assessment and plan: Abd is soft and rounded without hepatomegaly, No significant ascites noted, no fluid wave. Continue to monitor pt. Qualifiers: Hepatic cirrhosis type: alcoholic cirrhosis Ascites presence: without ascites Qualified Code(s): K70.30 - Alcoholic cirrhosis of liver without ascites - Time Spent With Patient less than 15 minutes - Subjective Interval history: Pt remains slow to respond and appears weak and altered to me. states that he is back to his current baseline. She states that since his admission in August , he has declined, but is at his baseline now. states that she is unable to really care for him at home due to his weakness. Pt has PT and home health at home, however, since they can't be there around the clock, I feel that he is unsafe to go home. She is also concerned about his sudden drop in platelets. I feel that it's most likely due to his cirrhosis. She states that they were following at [place] heme/onc, but did not get to see the doctor because pt was hospitalized by this physician for his labs. I have consulted heme/onc here due to family concern. - Constitutional Vitals: Temp Pulse Resp BP Pulse Ox 97.7 F 61 16 122/78 97 11/06/16 14:50 11/06/16 14:50 11/06/16 14:50 11/06/16 14:50 11/06/16 14:50 General appearance: Present: cooperative, A&O X 1, pleasant, no acute distress, answers questions appropriately - Head Head exam: Present: normal inspection, normocephalic - Eye Eye exam: Present: normal appearance, conjuntiva pink - ENT ENT exam: Present: mucous membranes moist, normal exam - Neck Neck exam general surgery: Present: normal inspection. Absent: lymphadenopathy , tenderness - Respiratory Respiratory exam: Present: CTAB. Absent: chest wall tenderness, rales, rhonchi , stridor, wheezes - Cardiovascular Cardiovascular exam: Present: RRR, +S1, +S2. Absent: diastolic murmur, systolic murmur - GI/Abdominal GI/Abdominal exam: Present: distended, soft. Absent: hepatomegaly, tenderness - Extremities Exam Extremities exam: Present: normal inspection, warm, radial pulses palpable and symmetrical. Absent: pedal edema, tenderness - Neurological Exam Neurological exam: Present: alert, altered. Absent: facial droop, speech deficit - Skin Skin exam: Present: dry, intact, warm. Absent: rash, urticaria Internal Medicine: Result - Labs CBC & Chem 7: 11/06/16 04:33 11/05/16 03:39 Labs: Short CBC 11/06/16 Range/Units 04:33 WBC 3.0 L (4.3-11.1) K/mcL Hgb 11.1 L (12.9-16.9) g/dL Hct 33.8 L (37.5-50.1) % Plt Count 63 L (140-400) K/mcL Neutrophils # 1.6 (1.6-8.9) K/mcL - ABG Interpretation ABG results: PT/INR, D-dimer PT 14.5 Seconds (9.4-12.1) H 11/05/16 03:39 - VTE Documentation of Mechanical Device: Intermittent pneumatic compression device Consult Discharge Plan - Plan Referrals: Issa Stone MD [Primary Care Provider] -
--- NOTE | 2016-11-06 19:37 | Oncology Inp Consult Note ---
Date of Encounter: 11/06/16 Time of Encounter: 19:28 Assessment and Plan (1) Thrombocytopenia Status: Acute Assessment and plan: In view of his chronicity, and overall stable course through the years, liver cirrhosis seems to be the more likely diagnosis. His diagnosis of liver cirrhosis is based on his liver US findings, history of alcohol abuse, elevated PT and low albumin with history of esophageal varices. The acute worsening of his platelet counts could be normal variation, although another causes need to be rule out. At this time I would like to examine his blood under the microscope to explore alternative diagnosis such as hemolytic anemia, or a primary bone marrow disorder. - Please order duplicated blood smear. - Do not transfuse unless counts drop below 20K or if there is active bleeding ( with counts less than 50) (2) Pancytopenia Status: Acute Assessment and plan: Probably secondary to liver cirrhosis too, but another etiologies need to be excluded. Will review blood smear Check vitamin B12, folate. Check iron panel, ferritin, reticulocytes. (3) Liver cirrhosis Status: Chronic Assessment and plan: Management as per primary team. Qualifiers: Hepatic cirrhosis type: alcoholic cirrhosis Ascites presence: without ascites Qualified Code(s): K70.30 - Alcoholic cirrhosis of liver without ascites - Data of Consult Requesting Physician: Julieta Hernández Primary Care Provider: Issa Stone MD - Consult Narrative Reason for consult: worsening thrombocytopenia. History of present illness: Chief complaint: generalized weakness. Thrombocytopenia. Mr. Cha is a 66 year old male with history of HTN, alcoholic liver cirrhosis with associated liver encephalopathy, esophagus varices, history of pre diabetes brought to the emergency department due to confusion and generalized weakness. Hematology consult requested due to worsening thrombocytopenia. History taken from prior notes and directly from patient. Mr. Cha has a long history of liver cirrhosis, as evidenced in US of the liver from July 2016, apparently secondary to his history of alcohol abuse. He denies any recent alcohol intake. His labs revealed thrombocytopenia at least documented since November 2013, with platelet counts fluctuating from the 100s to the 40s. Recently on August 28, 2016 his platelet count dropped to 42. Upon admission his platelet count was found up to 92K, but again has dropped gradually down to 63K today. He denies any recent bleeding events. There is associated leucopenia approximately for the same duration, and mormocytic anemia , with counts stable in the 10-11 range for the last six months. He has developed mental status changes, attributed to liver encephalopathy, and apparently has improved during the course of the hospitalization. Past Med Surg Social Fam HX - Past Medical History Medical history: arthritis, GERD, hypertension, liver disease Psychiatric history: anxiety, depression - Past Surgical History Surgical History: appendectomy, hip replacement (Left), other (EGD with esophageal bandings.) - Social History Smoking Status: Former smoker Smokeless Tobacco Status: No Alcohol use: none, heavy, recent Drug use: none - Family History Father Hx Family Neurologic Disorders: Yes (Brain aneurysm) Sister Hx Family Cardiac Disorders: Yes ([place]) Mother Hx Family Neurologic Disorders: Yes (Cerebral hemorrhage) Medications and Allergies Furosemide [Lasix] 40 mg PO DAILY 02/24/15 [History] Spironolactone [Aldactone] 25 mg PO DAILY 02/24/15 [History] Cholecalciferol (D-3) [Vitamin D] 1,000 unit PO DAILY 11/04/16 [History] DULoxetine [Cymbalta] 30 mg PO HS 11/04/16 [History] Lactulose 10 gm PO TID 11/04/16 [History] Multivitamin [Multi-Day Vitamins] 1 each PO DAILY 11/04/16 [History] OxyCODONE Immed Rel [Roxicodone 5 MG] 5 mg PO Q4H PRN 11/04/16 [History] Oxycodone HCl 10 mg PO Q4H PRN 11/04/16 [History] Pantoprazole Sodium [Protonix] 40 mg PO QAM 11/04/16 [History] Propranolol [Inderal] 20 mg PO TID 11/04/16 [History] 3 Allergy/AdvReac Type Severity Reaction Status Date / Time aspirin [ASA] AdvReac See Verified 02/18/15 10:11 Comments BACTRIM AdvReac Unknown UNKNOWN Uncoded 02/24/15 15:16 Constitutional: Present: fatigue, malaise Eyes: Absent: exophthalmos Cardiovascular: Absent: chest pain, chest pain with activity, irregular heart rhythm Gastrointestinal: Present: change in stool character. Absent: dysphagia, hematemesis Musculoskeletal: Absent: joint swelling Neurological: Present: confusion. Absent: sensory deficit Psychiatric: Present: confusion Endocrine: Present: fatigue Hematologic/Lymphatic: Present: as per HPI Allergic/Immunologic: Absent: wheezing Oncology - Exam - Constitutional Vitals: Temp Pulse Resp BP Pulse Ox 97.9 F 55 16 112/53 96 11/06/16 19:01 11/06/16 19:01 11/06/16 19:01 11/06/16 19:01 11/06/16 19:01 - Head Head exam: Present: normal inspection - ENT ENT exam: Present: normal oropharynx - Respiratory Respiratory exam: Present: CTAB - Cardiovascular Cardiovascular exam: Present: RRR - GI/Abdominal GI/Abdominal exam: Present: normal bowel sounds - Extremities Exam Extremities exam: Absent: tenderness - Back Exam Back exam: Absent: paraspinal tenderness - Neurological Exam Neurological exam: Present: CN II-XII intact - Psychiatric Psychiatric exam: Present: normal affect. Absent: anxious, flat affect - Skin Skin exam: Present: normal color Additional comments: There are not signs of prior bleeding: no bruises, petechia or hematomas Consult Discharge Plan - Plan Referrals: Issa Stone MD [Primary Care Provider] -
[2016-11-07 03:52] LABS: Basophils % 0.7 %; Eosinophils # 0.1 K/mcL (0.0-0.6); Eosinophils % 3.1 %; Hematocrit 35.8 % (37.5-50.1); Hemoglobin 11.8 g/dL (12.9-16.9); Immature Platelets 3.8 % (1.1-6.1); Lymphocytes # 1.3 K/mcL (0.6-4.6); Mean Corpuscular Hemoglobin 29.5 pg (28.0-33.3); Mean Corpuscular Volume 89.5 fL (83.0-100.0); Monocytes # 0.5 K/mcL (0.0-1.3); Monocytes % 11.6 %; Neutrophils # 2.3 K/mcL (1.6-8.9); Red Cell Distribution Width 18.3 % (11.5-14.5); Segmented Neutrophils % 54.6 %
[2016-11-07 04:04] LABS: Platelet Count 60 K/mcL (140-400)
[2016-11-07 04:05] LABS: BUN/Creatinine Ratio 13 (6-26); Blood Urea Nitrogen 14 mg/dL (8-26); Calcium 9.5 mg/dL (8.6-10.8); Carbon Dioxide 23 mEq/L (19-29); Chloride 105 mEq/L (98-109); Glucose 101 mg/dL (70-99); Osmolality,Calculated 287 (280-300); Potassium 3.7 mEq/L (3.5-4.5); Sodium 138 mEq/L (136-145); eGFR For African Americans > 60 (> 60); eGFR For Non-African Americans > 60 (> 60)
--- NOTE | 2016-11-07 10:32 | Oncology Inp Progress Note ---
Date of Encounter: 11/07/16 Time of Encounter: 10:30 (1) Thrombocytopenia Current Visit: Yes Status: Acute Assessment and plan: Platelet count trending down slightly, now at 60K. There are not bleeding events. Clinical presentation and labs still consistent with chronic thrombocytopenia more likely related to liver cirrhosis. I went to the lab, but blood smear was not prepared. I was told that will be ready in approximately 1 hour. - As discussed yesterday, the acute worsening of his platelet counts could be normal variation in the settings of chronic thrombocytopenia due to underlying liver cirrhosis, although another causes need to be rule out. Planning to review his blood smear later today. - Do not transfuse unless counts drop below 20K or if there is active bleeding ( with counts less than 50) (2) Pancytopenia Current Visit: Yes Status: Acute Assessment and plan: As documented yesterday, probably secondary to liver cirrhosis too, but another etiologies need to be excluded. Will review blood smear Please repeat vitamin B12, folate. Check iron panel, ferritin, reticulocytes. (3) Liver cirrhosis Current Visit: Yes Status: Chronic Assessment and plan: Management as per primary team. Qualifiers: Hepatic cirrhosis type: alcoholic cirrhosis Ascites presence: without ascites Qualified Code(s): K70.30 - Alcoholic cirrhosis of liver without ascites Oncology: Subj Interval history: CC" My back hurts" Reports not significant overnight events. Platelet count in the 60s today. No bleeding issues. Reports chronic back pain. ROS: hematologic: no bleeding events. Persistent thrombocytopenia. - Constitutional Vitals: Vital Signs Temp Pulse Resp BP Pulse Ox 11/07/16 08:09 97.8 F 63 16 115/76 98 11/06/16 23:29 97.6 F 63 16 121/76 93 11/06/16 19:01 97.9 F 55 16 112/53 96 Intake and Output 11/06/16 11/07/16 11/07/16 23:59 07:59 15:59 Other: Weight 117.9 kg Patient Weight 11/07/16 23:59 Weight 117.9 kg - Head Head exam: Present: normal inspection - Neck Neck exam: Present: normal inspection - Respiratory Respiratory exam: Present: CTAB - Cardiovascular Cardiovascular exam: Present: RRR - Neurological Exam Neurological exam: Present: oriented X3 - Skin Skin exam: Absent: petechiae Oncology: Obj Data - Labs CBC & Chem 7: 11/07/16 03:30 11/07/16 03:30 Labs: Laboratory Results - last 24 hr 11/07/16 11/07/16 03:30 03:30 WBC 4.2 L RBC 4.00 L Hgb 11.8 L Hct 35.8 L MCV 89.5 MCH 29.5 MCHC 33.0 RDW 18.3 H Plt Count 60 L MPV 10.0 Immature Gran % 0.0 Seg Neutrophils % 54.6 Lymphocytes % 30.0 Monocytes % 11.6 Eosinophils % 3.1 Basophils % 0.7 Neutrophils # 2.3 Lymphocytes # 1.3 Monocytes # 0.5 Eosinophils # 0.1 Basophils # 0.0 Immature Plt Fraction 3.8 Sodium 138 Potassium 3.7 Chloride 105 Carbon Dioxide 23 BUN 14 Creatinine 1.07 Est GFR ( Amer) > 60 Est GFR (Non-Af Amer) > 60 BUN/Creatinine Ratio 13 Glucose 101 H Calculated Osmolality 287 Calcium 9.5 - ABG Interpretation ABG results: PT/INR, D-dimer PT 14.5 Seconds (9.4-12.1) H 11/05/16 03:39 Consult Discharge Plan - Plan Referrals: Issa Stone MD [Primary Care Provider] -
[2016-11-07] MEDS: Lactulose Oral Soln 20 GM/30 ML UDC PO SCH (12:28)
[2016-11-07] MEDS: Cholecalciferol (D-3) 1,000 UNIT TABLET PO SCH (12:28)
[2016-11-07] MEDS: Multivit/Ca/Min/Fe/FA 1 TAB TABLET PO SCH (12:28)
[2016-11-07] MEDS: Spironolactone 25 MG TABLET PO SCH (12:28)
[2016-11-07] MEDS: Furosemide 40 MG TABLET PO SCH (12:28)
[2016-11-07 15:43] VITALS: BP 104/67
--- NOTE | 2016-11-07 16:11 | Discharge Summary ---
Date of Encounter: 11/07/16 Time of Encounter: 15:05 - Discharge Diagnosis (1) Encephalopathy Priority: Primary Status: Resolved Comments: Encephalopathy was transient, likely secondary to patient's history of cirrhosis and reported finding of asterixis on admission exam. Patient also could potentially have been sedated due to positive urine drug screen for opiates and benzodiazepine. Patient did not have a white count or fever. Chest x-ray and urinalysis were both negative. CT head with no acute intracranial abnormality. TSH was within normal limits. He has returned to his baseline per . He is drowsy, he does arouse easily and answers questions appropriately although he is slow to respond, again, reports that this is normal for him. Continue lactulose at home Decrease opiates and benzodiazepines at home and only use as needed instead of scheduled. (2) Thrombocytopenia Priority: Secondary Status: Chronic Comments: Patient with thrombocytopenia, as well as pancytopenia. He has been evaluated by hematology oncology here at the 's request, as well as at [facility]. It is found to be chronic and due to his chronic cirrhosis. They do not recommend transfusing with platelets unless count drops below 20,000 or if there is active bleeding with counts less than 50,000. I appreciate Dr. Nassar's consultation and recommendations. Patient will follow-up with primary care in the outpatient setting for continued evaluation and treatment. 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 He is to follow up with Dr. Mckinley very soon for follow-up visit. EGD from May, found grade 1 varices in the middle third of the esophagus, with lower third having scarring from prior banding. He has no acute bleeding at this time. Hemoglobin is relatively stable. Continue PPI at home. Qualifiers: Esophageal varices type: secondary Esophageal varices bleeding: without bleeding Qualified Code(s): I85.10 - Secondary esophageal varices without bleeding (4) Liver cirrhosis Priority: Secondary Status: Chronic Comments: Patient with known history of alcohol abuse. No significant ascites on exam, abdomen is still soft, mildly distended without fluid wave, no hepatomegaly. Bowel sounds are present. Abdomen is nontender. Qualifiers: Hepatic cirrhosis type: alcoholic cirrhosis Ascites presence: without ascites Qualified Code(s): K70.30 - Alcoholic cirrhosis of liver without ascites - Discharge Medications Home Medications: Furosemide [Lasix] 40 mg PO DAILY 02/24/15 [History] Spironolactone [Aldactone] 25 mg PO DAILY 02/24/15 [History] Cholecalciferol (D-3) [Vitamin D] 1,000 unit PO DAILY 11/04/16 [History] DULoxetine [Cymbalta] 30 mg PO HS 11/04/16 [History] Lactulose 10 gm PO TID 11/04/16 [History] Multivitamin [Multi-Day Vitamins] 1 each PO DAILY 11/04/16 [History] OxyCODONE Immed Rel [Roxicodone 5 MG] 5 mg PO Q4H PRN 11/04/16 [History] Oxycodone HCl 10 mg PO Q4H PRN 11/04/16 [History] Pantoprazole Sodium [Protonix] 40 mg PO QAM 11/04/16 [History] Propranolol [Inderal] 20 mg PO TID 11/04/16 [History] Allergies/Adverse Reactions: 3 Allergy/AdvReac Type Severity Reaction Status Date / Time aspirin [ASA] AdvReac See Verified 02/18/15 10:11 Comments BACTRIM AdvReac Unknown UNKNOWN Uncoded 02/24/15 15:16 Date of admission: 11/06/16 17:17 Primary care physician: Issa Stone MD Discharging clinician: Saba Alston Anticipated date of discharge: 11/07/16 - Patient Status Disposition: Home, Self-Care Functional capacity at discharge: uses cane/walker Overall status at discharge: patient is back to baseline - Discharge Instructions Follow Up With: Issa Stone MD [Primary Care Provider] - Additional Instructions: Follw up with PCP in the next 7-10 days for a recheck. Return to the ER as needed for any other problems or concerns or if your pain returns or worsens. Closely watch giving sedating medications and have them reviewed by your doctor. Continue other home medications and return to normal activities as tolerated. - Diet and Activity Activity: ambulate only with your walker Diet: advance to your usual diet Hospital course: Mr. Cha is a 66 year old male with past medical history of cirrhosis, thrombocytopenia, pancytopenia, esophageal varices with banding and chronic alcohol use. Patient presented to the emergency department with confusion and generalized weakness. In the emergency department he is awake, alert, oriented to self. Per the ED note, patient's reported he had become progressively weaker and was not quite himself since esophageal banding in August. At some point there was some report of some visual hallucinations per his and she said that he was talking about frogs jumping in the living room. Patient at that time and throughout stay denied chest pain, shortness of breath, cough, chills, abdominal pain, nausea, vomiting, or diarrhea. Patient takes lactulose daily and reports having diarrhea bowel movements 3 times a day. Chest x-ray in the emergency department was negative for any acute processes. Head CT was negative for any acute intracranial abnormality, stable chronic infarcts, stable mild chronic small vessel ischemic white matter disease, mild chronic right maxillary sinus, and mild right mastoid disease. Patient denies ear pain, difficulty hearing, drainage, tenderness with palpation. Patient had a retroperitoneal ultrasound in the emergency department due to difficulty urinating and a KI. At arrival creatinine was 1.45 GFR was 48.. There is no hydronephrosis, there is an atrophic left kidney and a large post void residual. Renal function has returned to baseline. He is had no leukocytosis, fever, tachycardia. Patient with a white count of 4.2, platelets of 60. These are chronic findings and patient has been seen by hematology oncology at [facility], he was admitted for altered lab values at that time. requested several times that patient be seen by hematology oncology here. Consultation was placed and he has been seen these are found to be chronic findings. Hematology oncology reviewed the smear, again findings indicate that is a chronic condition. Patient's urine has been negative. TSH is within normal limits. A1c is 5.2. Electrolytes have been stable throughout visit. Patient has been afebrile, and normotensive. He is not requiring supplemental oxygen to maintain sats at 95%. Patient does seem slow to respond, says that he is back to his baseline and is ready to take him home. I did have PT and OT evaluate him they said he demonstrates only minor impairments in gait, balance, and endurance. Skilled PTs are not warranted in the acute care setting, however he would benefit from skilled PT services in the home. Primary care physician will need to order these services. Patient's vital signs are within normal limits. Patient is appropriate for discharge to home. - Time Spent with Patient Total time spent providing and/or coordinating discharge services: Less than 30 minutes - Constitutional Vitals: Temp Pulse Resp BP Pulse Ox 97.5 F L 62 15 104/67 96 11/07/16 15:42 11/07/16 15:42 11/07/16 15:42 11/07/16 15:42 11/07/16 15:42 General appearance: Present: cooperative, A&O X 1, pleasant, no acute distress, answers questions appropriately - Head Head exam: Present: normal inspection, normocephalic - Eye Eye exam: Present: normal appearance, conjuntiva pink - ENT ENT exam: Present: mucous membranes moist, normal exam - Neck Neck exam general surgery: Present: normal inspection. Absent: lymphadenopathy , tenderness - Respiratory Respiratory exam: Present: CTAB. Absent: rales, rhonchi, stridor, wheezes - Cardiovascular Cardiovascular exam: Present: RRR, +S1, +S2. Absent: clicks, diastolic murmur, gallop, systolic murmur - GI/Abdominal GI/Abdominal exam: Present: distended, normal bowel sounds, soft. Absent: hepatomegaly, tenderness - Extremities Exam Extremities exam: Present: normal capillary refill, warm, radial pulses palpable and symmetrical. Absent: pedal edema - Neurological Exam Neurological exam: Present: alert. Absent: altered, facial droop, speech deficit - Skin Skin exam: Present: dry, intact, normal color, warm - VTE Documentation of Mechanical Device: Intermittent pneumatic compression device
--- NOTE | 2016-11-08 20:01 | Physician Discharge Referral ---
Home Health/Hosp Referral Info Transfer to: Home Health Provider in Charge Post Discharge: PCP - Diagnosis (1) Encephalopathy Priority: Primary Status: Resolved (2) Thrombocytopenia Priority: Secondary Status: Chronic (3) Esophageal varices Priority: Secondary Status: Chronic (4) Liver cirrhosis Priority: Secondary Status: Chronic - Respiratory Orders Smoking Cessation: Smoking cessation has been advised. For more information, call the [place] Tobacco Quit Line at 1-724-EQRF-NOW. - Diet/Nutrition Diet/Nutrition Orders: Regular - Activity Activity Orders: Up ad erwin - Services Needed Following services are medically necessary services: Nursing, Physical Therapy, Occupational Therapy - Transfer Medications Home Medications: Furosemide [Lasix] 40 mg PO DAILY 02/24/15 [History] Spironolactone [Aldactone] 25 mg PO DAILY 02/24/15 [History] Cholecalciferol (D-3) [Vitamin D] 1,000 unit PO DAILY 11/04/16 [History] DULoxetine [Cymbalta] 30 mg PO HS 11/04/16 [History] Lactulose 10 gm PO TID 11/04/16 [History] Multivitamin [Multi-Day Vitamins] 1 each PO DAILY 11/04/16 [History] OxyCODONE Immed Rel [Roxicodone 5 MG] 5 mg PO Q4H PRN 11/04/16 [History] Oxycodone HCl 10 mg PO Q4H PRN 11/04/16 [History] Pantoprazole Sodium [Protonix] 40 mg PO QAM 11/04/16 [History] Propranolol [Inderal] 20 mg PO TID 11/04/16 [History] Allergies/Adverse Reactions: 3 Allergy/AdvReac Type Severity Reaction Status Date / Time aspirin [ASA] AdvReac See Verified 02/18/15 10:11 Comments BACTRIM AdvReac Unknown UNKNOWN Uncoded 02/24/15 15:16 Certification: Further, I certify that my clinical findings support that this patient is homebound (i.e. absences from home require considerable and taxing effort and are for medical reasons or mosque services or infrequently or short duration when for other reasons) because: Homebound Reason: Severity of cardiac or pulmonary status limits activity tolerance Attestation: My signature below is to certify that this patient is under my care and that I, or nurse practitioner, or a physician's assistant passenger locomotive engineer working with me, has a face-to -face encounter with this patient.
== END 2016-11-07 19:20 | disposition home or self-care (01) | DRG 432 ==
LOC: EMEROO 16:35 → 3BNU 16:35
PROVIDERS: ADMIT Nurse Practitioner Family; ATTEND Nurse Practitioner Family

== ENCOUNTER 2016-11-14 08:52 | Inpatient (IN) ==
[2016-11-14] MEDS ORDERED: 0.9 % Sodium Chloride 1,000 ML IVC ONE (08:56)
--- NOTE | 2016-11-14 09:03 | Emergency Department Note ---
Disposition Clinical Impression: Liver cirrhosis, Acute kidney injury, Confusion, Encephalopathy Disposition: Admitted As Inpatient Condition: Fair General Adult HPI - General Chief complaint: ED Weakness Stated complaint: weakness/lethargic Time Seen by Provider: 11/14/16 08:56 - Related Data Home Medications Medication Instructions Recorded Confirmed Furosemide [Lasix] 40 mg PO DAILY 02/24/15 11/14/16 Spironolactone [Aldactone] 25 mg PO DAILY 02/24/15 11/14/16 Cholecalciferol (D-3) [Vitamin D] 1,000 unit PO DAILY 11/04/16 11/14/16 DULoxetine [Cymbalta] 30 mg PO HS 11/04/16 11/14/16 Lactulose 10 gm PO TID 11/04/16 11/14/16 Multivitamin [Multi-Day Vitamins] 1 tab PO DAILY 11/04/16 11/14/16 OxyCODONE Immed Rel [Roxicodone 5 5 mg PO Q4H PRN 11/04/16 11/14/16 MG] Oxycodone HCl 10 mg PO Q4H PRN 11/04/16 11/14/16 Pantoprazole Sodium [Protonix] 40 mg PO QAM 11/04/16 11/14/16 Propranolol [Inderal] 20 mg PO TID 11/04/16 11/14/16 Allergies Allergy/AdvReac Type Severity Reaction Status Date / Time aspirin [ASA] AdvReac See Verified 11/14/16 08:55 Comments BACTRIM AdvReac Unknown UNKNOWN Uncoded 11/14/16 08:55 Past Medical History - Past Medical History Medical history: Reports: arthritis, GERD, hypertension, liver disease Surgical history: Reports: appendectomy, hip replacement (Left), other (EGD with esophageal bandings.) Psychiatric history: Reports: anxiety, depression - Social History Smoking Status: Former smoker Smokeless Tobacco Status: No Alcohol use: Reports: none, heavy, recent Drug use: Reports: none Course Vital Signs O2 Sat by Pulse Oximetry 97 11/14/16 08:54 Temperature 97.7 F 11/14/16 14:49 Pulse Rate 89 11/14/16 14:49 Respiratory Rate 16 11/14/16 14:49 Blood Pressure 130/76 11/14/16 14:49 O2 Sat by Pulse Oximetry 95 11/14/16 14:49 Oxygen Delivery Oxygen Delivery Room Air Medical Decision Making - Lab Data Result diagrams: 11/14/16 09:13 11/14/16 09:13 Lab Results 11/14/16 11/14/16 11/14/16 Range/Units 09:13 09:13 09:13 WBC 5.2 (4.3-11.1) K/mcL RBC 4.51 (4.19-5.50) M/mcL Hgb 13.1 (12.9-16.9) g/dL Hct 39.8 (37.5-50.1) % MCV 88.2 (83.0-100.0) fL MCH 29.0 (28.0-33.3) pg MCHC 32.9 (31.6-35.5) g/dL RDW 19.4 H (11.5-14.5) % Plt Count 60 L (140-400) K/mcL MPV 9.9 (9.4-12.4) fL Immature Gran % 0.2 (0-4) % Seg Neutrophils % 82.3 % Lymphocytes % 9.2 % Monocytes % 7.5 % Eosinophils % 0.2 % Basophils % 0.6 % Neutrophils # 4.3 (1.6-8.9) K/mcL Lymphocytes # 0.5 L (0.6-4.6) K/mcL Monocytes # 0.4 (0.0-1.3) K/mcL Eosinophils # 0.0 (0.0-0.6) K/mcL Basophils # 0.0 (0.0-0.2) K/mcL PT 13.5 H (9.4-12.1) Seconds INR 1.2 Sodium 135 L (136-145) mEq/L Potassium 4.7 H (3.5-4.5) mEq/L Chloride 100 (98-109) mEq/L Carbon Dioxide 25 (19-29) mEq/L BUN 17 (8-26) mg/dL Creatinine 1.46 H (0.72-1.25) mg/dL Est GFR ( Amer) 58 L (> 60) Est GFR (Non-Af Amer) 48 L (> 60) BUN/Creatinine Ratio 12 (6-26) Glucose 131 H (70-99) mg/dL Calculated Osmolality 283 (280-300) Lactic Acid (0.5-2.2) mmol/L Calcium 10.2 (8.6-10.8) mg/dL Ionized Calcium 1.23 (1.15-1.35) mmol/L Phosphorus 2.5 (2.3-4.7) mg/dL Magnesium 1.4 L (1.6-2.6) mg/dL Total Bilirubin 2.2 H (0.2-1.2) mg/dL AST 92 H (5-34) Units/L ALT 37 (0-55) Units/L Alkaline Phosphatase 173 H (38-126) Units/L Ammonia (18-72) mcmol/L Creatine Kinase 55 (30-200) Units/L Troponin I (0-0.03) ng/mL Serum Total Protein 8.0 (6.0-8.3) g/dL Albumin 2.9 L (3.5-5.0) g/dL Globulin 5.1 H (2.4-3.5) g/dL Albumin/Globulin Ratio 0.6 L (1.1-2.2) TSH 1.421 (0.350-4.840) mcIU/mL Urine Color (Yellow) Urine Clarity (Clear) Urine pH (5.0-8.0) pH Units Ur Specific [place] (1.010-1.025) Urine Protein (Neg-Trace) mg/dL Urine Glucose (UA) (Normal) mg/dL Urine Ketones (Negative) mg/dL Urine Blood (Negative) Urine Nitrite (Negative) Urine Bilirubin (Negative) Urine Urobilinogen (Normal) mg/dL Ur Leukocyte Esterase (Negative) Urine Microscopic RBC (0-3) per hpf Urine Microscopic WBC (0-3) per hpf Ur Squamous Epith Cells (None-Few) per lpf Urine Bacteria (None-Few) per hpf Ur Culture Indicated? (NO) 11/14/16 11/14/16 11/14/16 Range/Units 09:13 09:13 09:13 WBC (4.3-11.1) K/mcL RBC (4.19-5.50) M/mcL Hgb (12.9-16.9) g/dL Hct (37.5-50.1) % MCV (83.0-100.0) fL MCH (28.0-33.3) pg MCHC (31.6-35.5) g/dL RDW (11.5-14.5) % Plt Count (140-400) K/mcL MPV (9.4-12.4) fL Immature Gran % (0-4) % Seg Neutrophils % % Lymphocytes % % Monocytes % % Eosinophils % % Basophils % % Neutrophils # (1.6-8.9) K/mcL Lymphocytes # (0.6-4.6) K/mcL Monocytes # (0.0-1.3) K/mcL Eosinophils # (0.0-0.6) K/mcL Basophils # (0.0-0.2) K/mcL PT (9.4-12.1) Seconds INR Sodium (136-145) mEq/L Potassium (3.5-4.5) mEq/L Chloride (98-109) mEq/L Carbon Dioxide (19-29) mEq/L BUN (8-26) mg/dL Creatinine (0.72-1.25) mg/dL Est GFR ( Amer) (> 60) Est GFR (Non-Af Amer) (> 60) BUN/Creatinine Ratio (6-26) Glucose (70-99) mg/dL Calculated Osmolality (280-300) Lactic Acid 2.3 H (0.5-2.2) mmol/L Calcium (8.6-10.8) mg/dL Ionized Calcium (1.15-1.35) mmol/L Phosphorus (2.3-4.7) mg/dL Magnesium (1.6-2.6) mg/dL Total Bilirubin (0.2-1.2) mg/dL AST (5-34) Units/L ALT (0-55) Units/L Alkaline Phosphatase (38-126) Units/L Ammonia 39 (18-72) mcmol/L Creatine Kinase (30-200) Units/L Troponin I 0.01 (0-0.03) ng/mL Serum Total Protein (6.0-8.3) g/dL Albumin (3.5-5.0) g/dL Globulin (2.4-3.5) g/dL Albumin/Globulin Ratio (1.1-2.2) TSH (0.350-4.840) mcIU/mL Urine Color (Yellow) Urine Clarity (Clear) Urine pH (5.0-8.0) pH Units Ur Specific [place] (1.010-1.025) Urine Protein (Neg-Trace) mg/dL Urine Glucose (UA) (Normal) mg/dL Urine Ketones (Negative) mg/dL Urine Blood (Negative) Urine Nitrite (Negative) Urine Bilirubin (Negative) Urine Urobilinogen (Normal) mg/dL Ur Leukocyte Esterase (Negative) Urine Microscopic RBC (0-3) per hpf Urine Microscopic WBC (0-3) per hpf Ur Squamous Epith Cells (None-Few) per lpf Urine Bacteria (None-Few) per hpf Ur Culture Indicated? (NO) 11/14/16 Range/Units 09:25 WBC (4.3-11.1) K/mcL RBC (4.19-5.50) M/mcL Hgb (12.9-16.9) g/dL Hct (37.5-50.1) % MCV (83.0-100.0) fL MCH (28.0-33.3) pg MCHC (31.6-35.5) g/dL RDW (11.5-14.5) % Plt Count (140-400) K/mcL MPV (9.4-12.4) fL Immature Gran % (0-4) % Seg Neutrophils % % Lymphocytes % % Monocytes % % Eosinophils % % Basophils % % Neutrophils # (1.6-8.9) K/mcL Lymphocytes # (0.6-4.6) K/mcL Monocytes # (0.0-1.3) K/mcL Eosinophils # (0.0-0.6) K/mcL Basophils # (0.0-0.2) K/mcL PT (9.4-12.1) Seconds INR Sodium (136-145) mEq/L Potassium (3.5-4.5) mEq/L Chloride (98-109) mEq/L Carbon Dioxide (19-29) mEq/L BUN (8-26) mg/dL Creatinine (0.72-1.25) mg/dL Est GFR ( Amer) (> 60) Est GFR (Non-Af Amer) (> 60) BUN/Creatinine Ratio (6-26) Glucose (70-99) mg/dL Calculated Osmolality (280-300) Lactic Acid (0.5-2.2) mmol/L Calcium (8.6-10.8) mg/dL Ionized Calcium (1.15-1.35) mmol/L Phosphorus (2.3-4.7) mg/dL Magnesium (1.6-2.6) mg/dL Total Bilirubin (0.2-1.2) mg/dL AST (5-34) Units/L ALT (0-55) Units/L Alkaline Phosphatase (38-126) Units/L Ammonia (18-72) mcmol/L Creatine Kinase (30-200) Units/L Troponin I (0-0.03) ng/mL Serum Total Protein (6.0-8.3) g/dL Albumin (3.5-5.0) g/dL Globulin (2.4-3.5) g/dL Albumin/Globulin Ratio (1.1-2.2) TSH (0.350-4.840) mcIU/mL Urine Color Dark Yellow (Yellow) Urine Clarity Turbid A (Clear) Urine pH 6.0 (5.0-8.0) pH Units Ur Specific [place] 1.015 (1.010-1.025) Urine Protein 100 H (Neg-Trace) mg/dL Urine Glucose (UA) Normal (Normal) mg/dL Urine Ketones Negative (Negative) mg/dL Urine Blood Moderate H (Negative) Urine Nitrite Negative (Negative) Urine Bilirubin Negative (Negative) Urine Urobilinogen Normal (Normal) mg/dL Ur Leukocyte Esterase Large H (Negative) Urine Microscopic RBC 5-15 H (0-3) per hpf Urine Microscopic WBC TNTC H (0-3) per hpf Ur Squamous Epith Cells Few (None-Few) per lpf Urine Bacteria Moderate H (None-Few) per hpf Ur Culture Indicated? YES A (NO) Attestation Statement - Attestation Attestation: I examined this patient and my medical decision-making was reviewed with the Resident Physician. I agree with the documented findings, disposition and treatment plan as described except to the extent set forth below. [id number] time provided Patient presents with progressive weakness. Recent history of hepatic and renal failure. Strong smell of urine on exam. Home medication list reviewed by me. Plan of care and management discussed by me with resident physician Dr. Whiteside
--- NOTE | 2016-11-14 09:18 | Emergency Department Note ---
Disposition Clinical Impression: Acute kidney injury, Confusion, Encephalopathy Liver cirrhosis Qualifiers: Hepatic cirrhosis type: alcoholic cirrhosis Ascites presence: without ascites Qualified Code(s): K70.30 - Alcoholic cirrhosis of liver without ascites Disposition: Admitted As Inpatient Condition: Fair Weakness HPI - General Chief complaint: ED Weakness Stated complaint: weakness/lethargic Time Seen by Provider: 11/14/16 08:56 Source: patient, EMS Mode of arrival: EMS Limitations: altered mental status Nursing Notes Reviewed: Yes Vital Signs Reviewed: Yes - History of Present Illness HPI Narrative: Patient presents to the ED with the chief complaint of weakness and altered mental status. EMS report that the patient was discharged from [facility] approximately one week ago after renal and hepatic failure. Over the last 5 days he has been gradually worsening. There is no acute weakness or altered mental status, but patient does seem lethargic according the family and EMS. Denied any fever. States patient is different from his baseline, but not anything different over the last 5 days. Patient denies any pain, but is otherwise unable to participate in the review of systems as he is confused. Pain Scale: 5 - Related Data Home Medications Medication Instructions Recorded Confirmed Furosemide [Lasix] 40 mg PO DAILY 02/24/15 11/14/16 Spironolactone [Aldactone] 25 mg PO DAILY 02/24/15 11/14/16 Cholecalciferol (D-3) [Vitamin D] 1,000 unit PO DAILY 11/04/16 11/14/16 DULoxetine [Cymbalta] 30 mg PO HS 11/04/16 11/14/16 Lactulose 10 gm PO TID 11/04/16 11/14/16 Multivitamin [Multi-Day Vitamins] 1 tab PO DAILY 11/04/16 11/14/16 OxyCODONE Immed Rel [Roxicodone 5 5 mg PO Q4H PRN 11/04/16 11/14/16 MG] Oxycodone HCl 10 mg PO Q4H PRN 11/04/16 11/14/16 Pantoprazole Sodium [Protonix] 40 mg PO QAM 11/04/16 11/14/16 Propranolol [Inderal] 20 mg PO TID 11/04/16 11/14/16 Allergies Allergy/AdvReac Type Severity Reaction Status Date / Time aspirin [ASA] AdvReac See Verified 11/14/16 08:55 Comments BACTRIM AdvReac Unknown UNKNOWN Uncoded 11/14/16 08:55 Limitations: ROS unobtainable due to patients medical condition Past Medical History - Past Medical History Source: old records reviewed, obtained from family Medical history: Reports: arthritis, GERD, hypertension, liver disease Surgical history: Reports: appendectomy, hip replacement (Left), other (EGD with esophageal bandings.) Psychiatric history: Reports: anxiety, depression - Social History Smoking Status: Former smoker Smokeless Tobacco Status: No Alcohol use: Reports: none, heavy, recent Drug use: Reports: none Physical Exam - General Limitations: altered mental status General appearance: lethargic - Head Head exam: atraumatic, normocephalic, normal inspection - Eye Eye exam: Present: normal appearance, PERRL, EOMI, scleral icterus - ENT ENT exam: mucous membranes dry - Respiratory Respiratory exam: Present: normal lung sounds bilaterally - Cardiovascular Cardiovascular exam: Present: regular rate, normal rhythm, normal heart sounds - Abdominal Exam Abdominal exam: Present: soft, Non-Tender, distention. Absent: tenderness, guarding, rebound - Extremities Exam Extremities exam: Present: normal capillary refill, pedal edema - Neurological Exam Neurological exam: Present: CN II-XII intact (Patient unable to follow some commands, but is grossly intact). Absent: oriented X3 (Patient knows name, year , but does think he is in [employer]) - Expanded Neurological Exam Patient oriented to: Present: person, time. Absent: place Speech: Present: expressive aphasia Cranial nerves: EOM function (II, III, IV, ): Normal, facial sensation (V): Normal, facial palsy (VII): Normal Cerebellar function: finger to nose: Normal (Patient unable to complete due to weakness in the upper extremities, equal bilaterally) Motor strength - LUE: 3/5 Motor strength - RUE: 3/5 Motor strength - LLE: 4/5 (Able to left, but does drift to bed) Motor strength - RLE: 4/5 (Same as above) Coma Scale Eye Opening: Spontaneous Coma Scale Motor Response: Obeys Commands Coma Scale Verbal Response: Confused Coma Scale Total: 14 - Skin Skin exam: Present: warm, dry, intact, other (Jaundice). Absent: normal color Course Course Narrative: Altered mental status workup started, patient smells very heavily of urine. Will be admitted Vital Signs O2 Sat by Pulse Oximetry 97 11/14/16 08:54 Temperature 97.7 F 11/14/16 14:49 Pulse Rate 89 11/14/16 14:49 Respiratory Rate 16 11/14/16 14:49 Blood Pressure 130/76 11/14/16 14:49 O2 Sat by Pulse Oximetry 95 11/14/16 14:49 Oxygen Delivery Oxygen Delivery Room Air Weakness - Medical Records Medical records reviewed: Yes I reviewed the patient's medical records. - Lab Data Lab results reviewed: Yes I reviewed the patient's lab results. Result diagrams: 11/14/16 09:13 11/14/16 09:13 Lab Results 11/14/16 11/14/16 11/14/16 Range/Units 09:13 09:13 09:13 WBC 5.2 (4.3-11.1) K/mcL RBC 4.51 (4.19-5.50) M/mcL Hgb 13.1 (12.9-16.9) g/dL Hct 39.8 (37.5-50.1) % MCV 88.2 (83.0-100.0) fL MCH 29.0 (28.0-33.3) pg MCHC 32.9 (31.6-35.5) g/dL RDW 19.4 H (11.5-14.5) % Plt Count 60 L (140-400) K/mcL MPV 9.9 (9.4-12.4) fL Immature Gran % 0.2 (0-4) % Seg Neutrophils % 82.3 % Lymphocytes % 9.2 % Monocytes % 7.5 % Eosinophils % 0.2 % Basophils % 0.6 % Neutrophils # 4.3 (1.6-8.9) K/mcL Lymphocytes # 0.5 L (0.6-4.6) K/mcL Monocytes # 0.4 (0.0-1.3) K/mcL Eosinophils # 0.0 (0.0-0.6) K/mcL Basophils # 0.0 (0.0-0.2) K/mcL PT 13.5 H (9.4-12.1) Seconds INR 1.2 Sodium 135 L (136-145) mEq/L Potassium 4.7 H (3.5-4.5) mEq/L Chloride 100 (98-109) mEq/L Carbon Dioxide 25 (19-29) mEq/L BUN 17 (8-26) mg/dL Creatinine 1.46 H (0.72-1.25) mg/dL Est GFR ( Amer) 58 L (> 60) Est GFR (Non-Af Amer) 48 L (> 60) BUN/Creatinine Ratio 12 (6-26) Glucose 131 H (70-99) mg/dL Calculated Osmolality 283 (280-300) Lactic Acid (0.5-2.2) mmol/L Calcium 10.2 (8.6-10.8) mg/dL Ionized Calcium 1.23 (1.15-1.35) mmol/L Phosphorus 2.5 (2.3-4.7) mg/dL Magnesium 1.4 L (1.6-2.6) mg/dL Total Bilirubin 2.2 H (0.2-1.2) mg/dL AST 92 H (5-34) Units/L ALT 37 (0-55) Units/L Alkaline Phosphatase 173 H (38-126) Units/L Ammonia (18-72) mcmol/L Creatine Kinase 55 (30-200) Units/L Troponin I (0-0.03) ng/mL Serum Total Protein 8.0 (6.0-8.3) g/dL Albumin 2.9 L (3.5-5.0) g/dL Globulin 5.1 H (2.4-3.5) g/dL Albumin/Globulin Ratio 0.6 L (1.1-2.2) TSH 1.421 (0.350-4.840) mcIU/mL Urine Color (Yellow) Urine Clarity (Clear) Urine pH (5.0-8.0) pH Units Ur Specific Webster (1.010-1.025) Urine Protein (Neg-Trace) mg/dL Urine Glucose (UA) (Normal) mg/dL Urine Ketones (Negative) mg/dL Urine Blood (Negative) Urine Nitrite (Negative) Urine Bilirubin (Negative) Urine Urobilinogen (Normal) mg/dL Ur Leukocyte Esterase (Negative) Urine Microscopic RBC (0-3) per hpf Urine Microscopic WBC (0-3) per hpf Ur Squamous Epith Cells (None-Few) per lpf Urine Bacteria (None-Few) per hpf Ur Culture Indicated? (NO) 11/14/16 11/14/16 11/14/16 Range/Units 09:13 09:13 09:13 WBC (4.3-11.1) K/mcL RBC (4.19-5.50) M/mcL Hgb (12.9-16.9) g/dL Hct (37.5-50.1) % MCV (83.0-100.0) fL MCH (28.0-33.3) pg MCHC (31.6-35.5) g/dL RDW (11.5-14.5) % Plt Count (140-400) K/mcL MPV (9.4-12.4) fL Immature Gran % (0-4) % Seg Neutrophils % % Lymphocytes % % Monocytes % % Eosinophils % % Basophils % % Neutrophils # (1.6-8.9) K/mcL Lymphocytes # (0.6-4.6) K/mcL Monocytes # (0.0-1.3) K/mcL Eosinophils # (0.0-0.6) K/mcL Basophils # (0.0-0.2) K/mcL PT (9.4-12.1) Seconds INR Sodium (136-145) mEq/L Potassium (3.5-4.5) mEq/L Chloride (98-109) mEq/L Carbon Dioxide (19-29) mEq/L BUN (8-26) mg/dL Creatinine (0.72-1.25) mg/dL Est GFR ( Amer) (> 60) Est GFR (Non-Af Amer) (> 60) BUN/Creatinine Ratio (6-26) Glucose (70-99) mg/dL Calculated Osmolality (280-300) Lactic Acid 2.3 H (0.5-2.2) mmol/L Calcium (8.6-10.8) mg/dL Ionized Calcium (1.15-1.35) mmol/L Phosphorus (2.3-4.7) mg/dL Magnesium (1.6-2.6) mg/dL Total Bilirubin (0.2-1.2) mg/dL AST (5-34) Units/L ALT (0-55) Units/L Alkaline Phosphatase (38-126) Units/L Ammonia 39 (18-72) mcmol/L Creatine Kinase (30-200) Units/L Troponin I 0.01 (0-0.03) ng/mL Serum Total Protein (6.0-8.3) g/dL Albumin (3.5-5.0) g/dL Globulin (2.4-3.5) g/dL Albumin/Globulin Ratio (1.1-2.2) TSH (0.350-4.840) mcIU/mL Urine Color (Yellow) Urine Clarity (Clear) Urine pH (5.0-8.0) pH Units Ur Specific Webster (1.010-1.025) Urine Protein (Neg-Trace) mg/dL Urine Glucose (UA) (Normal) mg/dL Urine Ketones (Negative) mg/dL Urine Blood (Negative) Urine Nitrite (Negative) Urine Bilirubin (Negative) Urine Urobilinogen (Normal) mg/dL Ur Leukocyte Esterase (Negative) Urine Microscopic RBC (0-3) per hpf Urine Microscopic WBC (0-3) per hpf Ur Squamous Epith Cells (None-Few) per lpf Urine Bacteria (None-Few) per hpf Ur Culture Indicated? (NO) 11/14/16 Range/Units 09:25 WBC (4.3-11.1) K/mcL RBC (4.19-5.50) M/mcL Hgb (12.9-16.9) g/dL Hct (37.5-50.1) % MCV (83.0-100.0) fL MCH (28.0-33.3) pg MCHC (31.6-35.5) g/dL RDW (11.5-14.5) % Plt Count (140-400) K/mcL MPV (9.4-12.4) fL Immature Gran % (0-4) % Seg Neutrophils % % Lymphocytes % % Monocytes % % Eosinophils % % Basophils % % Neutrophils # (1.6-8.9) K/mcL Lymphocytes # (0.6-4.6) K/mcL Monocytes # (0.0-1.3) K/mcL Eosinophils # (0.0-0.6) K/mcL Basophils # (0.0-0.2) K/mcL PT (9.4-12.1) Seconds INR Sodium (136-145) mEq/L Potassium (3.5-4.5) mEq/L Chloride (98-109) mEq/L Carbon Dioxide (19-29) mEq/L BUN (8-26) mg/dL Creatinine (0.72-1.25) mg/dL Est GFR ( Amer) (> 60) Est GFR (Non-Af Amer) (> 60) BUN/Creatinine Ratio (6-26) Glucose (70-99) mg/dL Calculated Osmolality (280-300) Lactic Acid (0.5-2.2) mmol/L Calcium (8.6-10.8) mg/dL Ionized Calcium (1.15-1.35) mmol/L Phosphorus (2.3-4.7) mg/dL Magnesium (1.6-2.6) mg/dL Total Bilirubin (0.2-1.2) mg/dL AST (5-34) Units/L ALT (0-55) Units/L Alkaline Phosphatase (38-126) Units/L Ammonia (18-72) mcmol/L Creatine Kinase (30-200) Units/L Troponin I (0-0.03) ng/mL Serum Total Protein (6.0-8.3) g/dL Albumin (3.5-5.0) g/dL Globulin (2.4-3.5) g/dL Albumin/Globulin Ratio (1.1-2.2) TSH (0.350-4.840) mcIU/mL Urine Color Dark Yellow (Yellow) Urine Clarity Turbid A (Clear) Urine pH 6.0 (5.0-8.0) pH Units Ur Specific Webster 1.015 (1.010-1.025) Urine Protein 100 H (Neg-Trace) mg/dL Urine Glucose (UA) Normal (Normal) mg/dL Urine Ketones Negative (Negative) mg/dL Urine Blood Moderate H (Negative) Urine Nitrite Negative (Negative) Urine Bilirubin Negative (Negative) Urine Urobilinogen Normal (Normal) mg/dL Ur Leukocyte Esterase Large H (Negative) Urine Microscopic RBC 5-15 H (0-3) per hpf Urine Microscopic WBC TNTC H (0-3) per hpf Ur Squamous Epith Cells Few (None-Few) per lpf Urine Bacteria Moderate H (None-Few) per hpf Ur Culture Indicated? YES A (NO) - Radiology Data Radiology results reviewed: Yes I reviewed the patient's radiology results. - EKG Data EKG attestation: Yes I reviewed and interpreted this EKG. EKG results narrative: Sinus rhythm, rate 92, MS interval 176, QRS 152, QTC 442, left axis deviation, right bundle-branch block pattern that is unchanged from previous.
[2016-11-14 09:25] LABS: Basophils % 0.6 %; Eosinophils % 0.2 %; Hematocrit 39.8 % (37.5-50.1); Hemoglobin 13.1 g/dL (12.9-16.9); Immature Granulocytes % 0.2 % (0-4); Lymphocytes # 0.5 K/mcL (0.6-4.6); Lymphocytes % 9.2 %; Mean Corpuscular HGB Conc 32.9 g/dL (31.6-35.5); Mean Corpuscular Volume 88.2 fL (83.0-100.0); Mean Platelet Volume 9.9 fL (9.4-12.4); Monocytes # 0.4 K/mcL (0.0-1.3); Monocytes % 7.5 %; Neutrophils # 4.3 K/mcL (1.6-8.9); Red Blood Count 4.51 M/mcL (4.19-5.50); Red Cell Distribution Width 19.4 % (11.5-14.5); Segmented Neutrophils % 82.3 %
[2016-11-14 09:26] LABS: Platelet Count 60 K/mcL (140-400)
[2016-11-14 09:32] LABS: INR 1.2; Ionized Calcium 1.23 mmol/L (1.15-1.35); Prothrombin Time 13.5 Seconds (9.4-12.1)
[2016-11-14 09:39] LABS: Bilirubin,Urine Negative (Negative); Blood,Urine Moderate (Negative); Clarity,Urine Turbid (Clear); Color,Urine Dark Yellow (Yellow); Glucose,Urine (UA) Normal (Normal); Ketones,Urine Negative (Negative); Leukocyte Esterase,Urine Large (Negative); Nitrite,Urine Negative (Negative); Protein,Urine 100 mg/dL (Neg-Trace); Specific Gravity,Urine 1.015 (1.010-1.025); Urobilinogen,Urine Normal (Normal)
[2016-11-14 09:42] LABS: Albumin 2.9 g/dL (3.5-5.0); Albumin/Globulin Ratio 0.6 (1.1-2.2); Bilirubin,Total 2.2 mg/dL (0.2-1.2); Calcium 10.2 mg/dL (8.6-10.8); Globulin 5.1 g/dL (2.4-3.5); Magnesium 1.4 mg/dL (1.6-2.6); Phosphorous 2.5 mg/dL (2.3-4.7); Potassium 4.7 mEq/L (3.5-4.5)
[2016-11-14 09:53] LABS: WBC,Urine TNTC per hpf (0-3)
[2016-11-14 09:54] LABS: Bacteria,Urine Moderate per hpf (None-Few); Squamous Epithelial Cell,Urine Few per lpf (None-Few)
[2016-11-14 10:02] LABS: Thyroid Stimulating Hormone 1.421 mcIU/mL (0.350-4.840)
[2016-11-14] MEDS ORDERED: Ondansetron 4 MG/2 ML VIAL IVP PRN (14:06)
[2016-11-14] MEDS ORDERED: Naloxone 0.4 MG/ML INJ IVP PRN (14:06)
--- NOTE | 2016-11-14 14:23 | Internal Med History&Physical ---
<Adore Burgos M - Last Filed: 11/14/16 14:25> Date of Encounter: 11/14/16 Time of Encounter: 14:19 Assessment and Plan (1) Encephalopathy Current visit: Yes Status: Acute Patient presents with encephalopathy, confusion and weakness. He is oriented only to self and is slow to respond to directions. Patient has cirrhosis and takes lactulose, ammonia is normal at 39. CT of head shows no acute intracranial abnormality. He has a UTI and is dehydrated. Will hold lactulose due to dehydration and give Xifaxin. Treat UTI and gently hydrate. Monitor for improvement. (2) UTI (urinary tract infection) Current visit: Yes Status: Acute UA consistent with UTI. Will treat with IV rocephin. await culture results. Qualifiers: Urinary tract infection type: acute cystitis Hematuria presence: without hematuria Qualified Code(s): N30.00 - Acute cystitis without hematuria (3) Acute kidney injury Current visit: Yes Status: Acute Creatinine of 1.46 today, up from previous of 1.07 on 11/07. Patient's family reports he has not been eating well and has had poor oral intake. Patient appears dehydrated on exam with dry mucous membranes. His UA is consistent with UTI. STERLING likely secondary to dehydration and UTI, however, hepato-renal syndrome is a consideration. Hold lasix and spiranolactone. IV fluids 0.9NS at 80mL/hr. Recheck chemistry in the morning. (4) Liver cirrhosis Current visit: Yes Status: Chronic Patient with alcoholic cirrhosis. He has not had any alcohol since July. Tbili elevated to 2.2 and he appears jaundice. Ammonia level normal at 39, but patient is encephalopathic. Will continue propranolol for portal hypertension. Xifaxin for encephalopathy. Qualifiers: Hepatic cirrhosis type: alcoholic cirrhosis Ascites presence: without ascites Qualified Code(s): K70.30 - Alcoholic cirrhosis of liver without ascites (5) Thrombocytopenia Current visit: Yes Status: Chronic Plt of 60 today. THis is chronic and secondary to his cirrhosis. (6) DVT prophylaxis Current visit: Yes Status: Acute sequential compression devices. Pharmacologic prophylaxis contraindicated in cirrhosis with history of varices and thrombocytopenia with PLt of 60. Internal Medicine - H&P: HPI Chief complaint: weakness, confusion Admitted From: Emergency Dept Plans for Post Hospital Care: Home History of present illness: Mr. Cha is a 66 year old male with hypertension, alcoholic cirrhosis, presents emergency department today with increasing weakness and confusion. Patient's family reports that he has been calm progressively weaker over the last week. He had been oriented, and able to walk earlier in the week, but today they are not even sure he knows they are, and he is unable to walk. Review of systems is unobtainable due to patient's mental status. Evaluation in the emergency department included a CT of the head which showed no acute intracranial abnormality. EKG shows sinus rhythm with no changes from previous. CT of the abdomen and pelvis showed cirrhosis with splenomegaly, there are trace ascites in the pelvis. Chest x-ray showed no evidence of acute disease. UA was consistent with a UTI, and patient had AKA with creatinine of 1.46 up from previous of 1.07. White blood cell count was normal at 5.2. On exam, patient oriented to self only, very slow to respond to verbal stimuli. Mouth is very dry. Heart has regular rate and rhythm, lungs are clear bilaterally, auscultation. Abdomen is soft, with mild diffuse tenderness. Bilateral lower extremity swelling. Past Med Surg Social Fam HX - Past Medical History Medical history: arthritis, GERD, hypertension, liver disease Psychiatric history: anxiety, depression - Past Surgical History Surgical History: appendectomy, hip replacement (Left), other (EGD with esophageal bandings.) - Social History Smoking Status: Former smoker Smokeless Tobacco Status: No Alcohol use: none, heavy, recent Drug use: none - Family History Father Hx Family Neurologic Disorders: Yes (Brain aneurysm) Sister Hx Family Cardiac Disorders: Yes ([place]) Mother Hx Family Neurologic Disorders: Yes (Cerebral hemorrhage) Internal Medicine - H&P: Meds Furosemide [Lasix] 40 mg PO DAILY 02/24/15 [History] Spironolactone [Aldactone] 25 mg PO DAILY 02/24/15 [History] Cholecalciferol (D-3) [Vitamin D] 1,000 unit PO DAILY 11/04/16 [History] DULoxetine [Cymbalta] 30 mg PO HS 11/04/16 [History] Lactulose 10 gm PO TID 11/04/16 [History] Multivitamin [Multi-Day Vitamins] 1 tab PO DAILY 11/04/16 [History] OxyCODONE Immed Rel [Roxicodone 5 MG] 5 mg PO Q4H PRN 11/04/16 [History] Oxycodone HCl 10 mg PO Q4H PRN 11/04/16 [History] Pantoprazole Sodium [Protonix] 40 mg PO QAM 11/04/16 [History] Propranolol [Inderal] 20 mg PO TID 11/04/16 [History] 3 Allergy/AdvReac Type Severity Reaction Status Date / Time aspirin [ASA] AdvReac See Verified 11/14/16 08:55 Comments BACTRIM AdvReac Unknown UNKNOWN Uncoded 11/14/16 08:55 ROS unobtainable: due to mental status All Systems PM: A 10-system review of systems was performed and is negative for pertinent findings except as documented above in the HPI. - Constitutional Vitals: Temp Pulse Resp BP Pulse Ox 97.7 F 89 20 111/66 96 11/14/16 09:00 11/14/16 11:05 11/14/16 11:05 11/14/16 11:05 11/14/16 11:05 General appearance: Present: A&O X 1. Absent: answers questions appropriately - Head Head exam: Present: atraumatic, normocephalic - Eye Eye exam: Present: PERRL, scleral icterus, conjuntiva pink Pupils: Present: PERRL - ENT ENT exam: Present: mucous membranes dry - Neck Neck exam general surgery: Present: supple, trachea midline. Absent: lymphadenopathy - Respiratory Respiratory exam: Present: CTAB. Absent: accessory muscle use, rales, rhonchi, wheezes - Cardiovascular Cardiovascular exam: Present: RRR, +S1, +S2. Absent: diastolic murmur, gallop, rubs, systolic murmur - GI/Abdominal GI/Abdominal exam: Present: normal bowel sounds, soft, tenderness (mild, diffuse ), no peritoneal signs. Absent: distended - Extremities Exam Extremities exam: Present: pedal edema (BLE swelling), warm, radial pulses palpable and symmetrical. Absent: calf tenderness, cyanotic - Neurological Exam Neurological exam: Present: CN II-XII intact. Absent: facial droop - Expanded Neurological Exam Neurological exam expanded: Present: inattentive, protecting the airway Patient oriented to: Present: person Coma Scale Eye Opening: To Voice Coma Scale Motor Response: Localizes to Pain Coma Scale Verbal Response: Confused Coma Scale Total: 12 - Skin Skin exam: Present: dry, intact Internal Med - H&P Results - Labs CBC & Chem 7: 11/14/16 09:13 11/14/16 09:13 Labs: All Lab Results (24 Hours) 11/14/16 11/14/16 11/14/16 Range/Units 09:13 09:13 09:13 WBC 5.2 (4.3-11.1) K/mcL RBC 4.51 (4.19-5.50) M/mcL Hgb 13.1 (12.9-16.9) g/dL Hct 39.8 (37.5-50.1) % MCV 88.2 (83.0-100.0) fL MCH 29.0 (28.0-33.3) pg MCHC 32.9 (31.6-35.5) g/dL RDW 19.4 H (11.5-14.5) % Plt Count 60 L (140-400) K/mcL MPV 9.9 (9.4-12.4) fL Immature Gran % 0.2 (0-4) % Seg Neutrophils % 82.3 % Lymphocytes % 9.2 % Monocytes % 7.5 % Eosinophils % 0.2 % Basophils % 0.6 % Neutrophils # 4.3 (1.6-8.9) K/mcL Lymphocytes # 0.5 L (0.6-4.6) K/mcL Monocytes # 0.4 (0.0-1.3) K/mcL Eosinophils # 0.0 (0.0-0.6) K/mcL Basophils # 0.0 (0.0-0.2) K/mcL PT 13.5 H (9.4-12.1) Seconds INR 1.2 Sodium 135 L (136-145) mEq/L Potassium 4.7 H (3.5-4.5) mEq/L Chloride 100 (98-109) mEq/L Carbon Dioxide 25 (19-29) mEq/L BUN 17 (8-26) mg/dL Creatinine 1.46 H (0.72-1.25) mg/dL Est GFR ( Amer) 58 L (> 60) Est GFR (Non-Af Amer) 48 L (> 60) BUN/Creatinine Ratio 12 (6-26) Glucose 131 H (70-99) mg/dL Calculated Osmolality 283 (280-300) Lactic Acid (0.5-2.2) mmol/L Calcium 10.2 (8.6-10.8) mg/dL Ionized Calcium 1.23 (1.15-1.35) mmol/L Phosphorus 2.5 (2.3-4.7) mg/dL Magnesium 1.4 L (1.6-2.6) mg/dL Total Bilirubin 2.2 H (0.2-1.2) mg/dL AST 92 H (5-34) Units/L ALT 37 (0-55) Units/L Alkaline Phosphatase 173 H (38-126) Units/L Ammonia (18-72) mcmol/L Creatine Kinase 55 (30-200) Units/L Troponin I (0-0.03) ng/mL Serum Total Protein 8.0 (6.0-8.3) g/dL Albumin 2.9 L (3.5-5.0) g/dL Globulin 5.1 H (2.4-3.5) g/dL Albumin/Globulin Ratio 0.6 L (1.1-2.2) TSH 1.421 (0.350-4.840) mcIU/mL Urine Color (Yellow) Urine Clarity (Clear) Urine pH (5.0-8.0) pH Units Ur Specific [place] (1.010-1.025) Urine Protein (Neg-Trace) mg/dL Urine Glucose (UA) (Normal) mg/dL Urine Ketones (Negative) mg/dL Urine Blood (Negative) Urine Nitrite (Negative) Urine Bilirubin (Negative) Urine Urobilinogen (Normal) mg/dL Ur Leukocyte Esterase (Negative) Urine Microscopic RBC (0-3) per hpf Urine Microscopic WBC (0-3) per hpf Ur Squamous Epith Cells (None-Few) per lpf Urine Bacteria (None-Few) per hpf Ur Culture Indicated? (NO) 11/14/16 11/14/16 11/14/16 Range/Units 09:13 09:13 09:13 WBC (4.3-11.1) K/mcL RBC (4.19-5.50) M/mcL Hgb (12.9-16.9) g/dL Hct (37.5-50.1) % MCV (83.0-100.0) fL MCH (28.0-33.3) pg MCHC (31.6-35.5) g/dL RDW (11.5-14.5) % Plt Count (140-400) K/mcL MPV (9.4-12.4) fL Immature Gran % (0-4) % Seg Neutrophils % % Lymphocytes % % Monocytes % % Eosinophils % % Basophils % % Neutrophils # (1.6-8.9) K/mcL Lymphocytes # (0.6-4.6) K/mcL Monocytes # (0.0-1.3) K/mcL Eosinophils # (0.0-0.6) K/mcL Basophils # (0.0-0.2) K/mcL PT (9.4-12.1) Seconds INR Sodium (136-145) mEq/L Potassium (3.5-4.5) mEq/L Chloride (98-109) mEq/L Carbon Dioxide (19-29) mEq/L BUN (8-26) mg/dL Creatinine (0.72-1.25) mg/dL Est GFR ( Amer) (> 60) Est GFR (Non-Af Amer) (> 60) BUN/Creatinine Ratio (6-26) Glucose (70-99) mg/dL Calculated Osmolality (280-300) Lactic Acid 2.3 H (0.5-2.2) mmol/L Calcium (8.6-10.8) mg/dL Ionized Calcium (1.15-1.35) mmol/L Phosphorus (2.3-4.7) mg/dL Magnesium (1.6-2.6) mg/dL Total Bilirubin (0.2-1.2) mg/dL AST (5-34) Units/L ALT (0-55) Units/L Alkaline Phosphatase (38-126) Units/L Ammonia 39 (18-72) mcmol/L Creatine Kinase (30-200) Units/L Troponin I 0.01 (0-0.03) ng/mL Serum Total Protein (6.0-8.3) g/dL Albumin (3.5-5.0) g/dL Globulin (2.4-3.5) g/dL Albumin/Globulin Ratio (1.1-2.2) TSH (0.350-4.840) mcIU/mL Urine Color (Yellow) Urine Clarity (Clear) Urine pH (5.0-8.0) pH Units Ur Specific [place] (1.010-1.025) Urine Protein (Neg-Trace) mg/dL Urine Glucose (UA) (Normal) mg/dL Urine Ketones (Negative) mg/dL Urine Blood (Negative) Urine Nitrite (Negative) Urine Bilirubin (Negative) Urine Urobilinogen (Normal) mg/dL Ur Leukocyte Esterase (Negative) Urine Microscopic RBC (0-3) per hpf Urine Microscopic WBC (0-3) per hpf Ur Squamous Epith Cells (None-Few) per lpf Urine Bacteria (None-Few) per hpf Ur Culture Indicated? (NO) 11/14/16 Range/Units 09:25 WBC (4.3-11.1) K/mcL RBC (4.19-5.50) M/mcL Hgb (12.9-16.9) g/dL Hct (37.5-50.1) % MCV (83.0-100.0) fL MCH (28.0-33.3) pg MCHC (31.6-35.5) g/dL RDW (11.5-14.5) % Plt Count (140-400) K/mcL MPV (9.4-12.4) fL Immature Gran % (0-4) % Seg Neutrophils % % Lymphocytes % % Monocytes % % Eosinophils % % Basophils % % Neutrophils # (1.6-8.9) K/mcL Lymphocytes # (0.6-4.6) K/mcL Monocytes # (0.0-1.3) K/mcL Eosinophils # (0.0-0.6) K/mcL Basophils # (0.0-0.2) K/mcL PT (9.4-12.1) Seconds INR Sodium (136-145) mEq/L Potassium (3.5-4.5) mEq/L Chloride (98-109) mEq/L Carbon Dioxide (19-29) mEq/L BUN (8-26) mg/dL Creatinine (0.72-1.25) mg/dL Est GFR ( Amer) (> 60) Est GFR (Non-Af Amer) (> 60) BUN/Creatinine Ratio (6-26) Glucose (70-99) mg/dL Calculated Osmolality (280-300) Lactic Acid (0.5-2.2) mmol/L Calcium (8.6-10.8) mg/dL Ionized Calcium (1.15-1.35) mmol/L Phosphorus (2.3-4.7) mg/dL Magnesium (1.6-2.6) mg/dL Total Bilirubin (0.2-1.2) mg/dL AST (5-34) Units/L ALT (0-55) Units/L Alkaline Phosphatase (38-126) Units/L Ammonia (18-72) mcmol/L Creatine Kinase (30-200) Units/L Troponin I (0-0.03) ng/mL Serum Total Protein (6.0-8.3) g/dL Albumin (3.5-5.0) g/dL Globulin (2.4-3.5) g/dL Albumin/Globulin Ratio (1.1-2.2) TSH (0.350-4.840) mcIU/mL Urine Color Dark Yellow (Yellow) Urine Clarity Turbid A (Clear) Urine pH 6.0 (5.0-8.0) pH Units Ur Specific [place] 1.015 (1.010-1.025) Urine Protein 100 H (Neg-Trace) mg/dL Urine Glucose (UA) Normal (Normal) mg/dL Urine Ketones Negative (Negative) mg/dL Urine Blood Moderate H (Negative) Urine Nitrite Negative (Negative) Urine Bilirubin Negative (Negative) Urine Urobilinogen Normal (Normal) mg/dL Ur Leukocyte Esterase Large H (Negative) Urine Microscopic RBC 5-15 H (0-3) per hpf Urine Microscopic WBC TNTC H (0-3) per hpf Ur Squamous Epith Cells Few (None-Few) per lpf Urine Bacteria Moderate H (None-Few) per hpf Ur Culture Indicated? YES A (NO) - Diagnostic Studies Chest x-ray Additional comments: Chest X-Ray 11/14/16 08:56 IMPRESSION: No evidence of acute disease. D/ / Osman Jáurez MD / Omsan Juárez MD Interpreting Provider: Osman Juárez MD CT scan - head Additional comments: Head CT 11/14/16 08:57 IMPRESSION: No acute intracranial abnormality. D/ / Luis Grimm MD / Luis Grimm MD Interpreting Provider: Luis Grimm MD CT scan - abdomen Additional comments: Abdomen/Pelvis CT 11/14/16 11:06 IMPRESSION: Cirrhosis with splenomegaly. D/ / Luis Grimm MD / Luis Grimm MD Interpreting Provider: Luis Grimm MD <nAdrés Coffey - Last Filed: 11/14/16 15:08> Date of Encounter: 11/14/16 Internal Medicine - H&P: HPI History of present illness: Mr. Cha is a 66 year old male All Systems PM: A 10-system review of systems was performed and is negative for pertinent findings except as documented above in the HPI. - Constitutional Vitals: Temp Pulse Resp BP Pulse Ox 97.7 F 89 16 130/76 95 11/14/16 14:49 11/14/16 14:49 11/14/16 14:49 11/14/16 14:49 11/14/16 14:49 Internal Med - H&P Results - Labs CBC & Chem 7: 11/14/16 09:13 11/14/16 09:13 - Attending Attestation I examined this patient and my medical decision-making was reviewed with Ms. Burgos. I agree with the documented findings, disposition and treatment plan as described except to the extent set forth below. 66-year-old male with a history of alcohol cirrhosis completed by portal hypertension and splenomegaly and thrombocytopenia, esophageal varices status post banding presents to the emergency department brought in by family due to confusion, chills and worsening weakness over the past 2-3 days. Family also reports reduced by mouth intake. On exam, patient is oriented to self. Clear breath sounds bilaterally. First and second heart sounds present. Tachycardia present. Labs reviewed. CT scan of the head personally reviewed and does not reveal any acute intracranial abnormality. 1. Hepatic encephalopathy-admit to inpatient status. Expected to be in the hospital for at least 2 midnights. Expected discharge disposition is to home. Hold lactulose due to dehydration. Xifaxan by mouth twice a day. Hydration. Monitor mental status. High risk due to risk of worsening encephalopathy and risk of worsening kidney injury. 2. Acute kidney injury-likely due to dehydration. Patient was provided with intravenous fluids. Monitor renal function and urine output. Avoid nephrotoxic agents and hypotension. 3. Urinary tract infection-intravenous Rocephin. Follow-up culture sensitivities and adjust antibiotics accordingly. 4. Alcoholic cirrhosis complicated by portal hypertension, splenomegaly, thrombocytopenia and esophageal varices-trace ascites on abdominal CT scan. Low suspicion for spontaneous bacterial peritonitis. Continue beta leonarda. SCDs for DVT prophylaxis. MILVIA ZamanBS
[2016-11-14] MEDS: 0.9 % Sodium Chloride 1,000 ML IVC SCH (17:23)
[2016-11-14 17:44] LABS: Amphetamine Screen,Urine Negative ng/mL (Cutoff=1000); Barbiturate Screen,Urine Negative ng/mL (Cutoff=200); Benzodiazepines Screen,Urine Positive ng/mL (Cutoff=200); Cannabinoid Screen,Urine Negative ng/mL (Cutoff = 50); Cocaine Screen,Urine Negative ng/mL (Cutoff= 300); Opiate Screen,Urine Negative ng/mL (Cutoff=300); Phencyclidine Screen,Urine Negative ng/mL (Cutoff=25)
[2016-11-15] MEDS: 0.9 % Sodium Chloride 1,000 ML IVC SCH (05:25)
[2016-11-15 05:30] LABS: Acinetobacter baumannii by PCR Not Detected (Not Detect); Candida albicans by PCR Not Detected (Not Detect); Candida glabrata by PCR Not Detected (Not Detect); Candida krusei by PCR Not Detected (Not Detect); Candida parapsilosis by PCR Not Detected (Not Detect); Candida tropicalis by PCR Not Detected (Not Detect); Enterococcus by PCR Not Detected (Not Detect); Escherichia coli by PCR ***DETECTED*** (Not Detect); Klebsiella oxytoca by PCR Not Detected (Not Detect); Klebsiella pneumoniae by PCR Not Detected (Not Detect); Pseudomonas aeruginosa by PCR Not Detected (Not Detect); Serratia marcescens by PCR Not Detected (Not Detect); Staphylococcus aureus by PCR Not Detected (Not Detect); Streptococcus agalactiae(B)PCR Not Detected (Not Detect); Streptococcus by PCR Not Detected (Not Detect); Streptococcus pneumoniae PCR Not Detected (Not Detect); Streptococcus pyogenes (A) PCR Not Detected (Not Detect); blaKPC Carbapenem-Resist Gene Not Detected (Not Detect); mecA Methicillin-Resist Gene Not Detected (Not Detect); vanA/B Vancomycin-Resist Genes Not Detected (Not Detect)
--- NOTE | 2016-11-15 05:41 | Event Note ---
Date of Encounter: 11/15/16 Time of Encounter: 05:40 Bd Cx positive for GNR, E coli/enterobacter non toxic, vitals stable - cont ceftriaxone
[2016-11-15 05:49] LABS: INR 1.3; Prothrombin Time 14.4 Seconds (9.4-12.1)
[2016-11-15 05:51] LABS: Activated Partial Thrombo Time 40.4 Seconds (26.0-36.0)
[2016-11-15 05:57] LABS: BUN/Creatinine Ratio 15 (6-26); Blood Urea Nitrogen 15 mg/dL (8-26); Calcium 9.4 mg/dL (8.6-10.8); Carbon Dioxide 19 mEq/L (19-29); Chloride 105 mEq/L (98-109); Glucose 142 mg/dL (70-99); Osmolality,Calculated 279 (280-300); Potassium 3.9 mEq/L (3.5-4.5); Sodium 133 mEq/L (136-145); eGFR For African Americans > 60 (> 60); eGFR For Non-African Americans > 60 (> 60)
[2016-11-15 06:45] LABS: Basophils % 0.3 %; Hematocrit 33.2 % (37.5-50.1); Hemoglobin 11.1 g/dL (12.9-16.9); Immature Granulocytes % 0.7 % (0-4); Immature Platelets 3.7 % (1.1-6.1); Lymphocytes # 0.4 K/mcL (0.6-4.6); Lymphocytes % 13.7 %; Mean Corpuscular HGB Conc 33.4 g/dL (31.6-35.5); Mean Corpuscular Hemoglobin 29.5 pg (28.0-33.3); Mean Platelet Volume 9.9 fL (9.4-12.4); Monocytes # 0.3 K/mcL (0.0-1.3); Monocytes % 11.6 %; Red Blood Count 3.76 M/mcL (4.19-5.50); Red Cell Distribution Width 19.6 % (11.5-14.5); Segmented Neutrophils % 73.7 %
[2016-11-15 06:49] LABS: Mean Corpuscular Volume 88.3 fL (83.0-100.0); Neutrophils # 2.1 K/mcL (1.6-8.9); Platelet Count 49 K/mcL (140-400)
[2016-11-15 07:18] LABS: Platelet Estimate Decreased (Normal)
[2016-11-15] MEDS: Pantoprazole 40 MG VIAL IVP SCH (08:30)
[2016-11-15] MEDS: Multivit/Ca/Min/Fe/FA 1 TAB TABLET PO SCH (08:31)
[2016-11-15] MEDS: Acetaminophen 325 MG TABLET PO PRN (13:32)
--- NOTE | 2016-11-15 16:49 | Internal Med Progress Note ---
Date of Encounter: 11/15/16 Time of Encounter: 16:47 - Assessment and plan (1) UTI (urinary tract infection) Current Visit: Yes Status: Acute Assessment and plan: Continue intravenous antibiotics. Change Rocephin to Zosyn. Escherichia coli and Enterobacteriaceae growing from blood. Repeat blood cultures today. Continue intravenous fluids. Patient is high risk due to need for intravenous antibiotics and he is at risk of sepsis and septic shock. Qualifiers: Urinary tract infection type: acute cystitis Hematuria presence: without hematuria Qualified Code(s): N30.00 - Acute cystitis without hematuria (2) Metabolic encephalopathy Current Visit: Yes Status: Acute Assessment and plan: Related to his urinary tract infection and gram-negative bacteremia. Intravenous antibiotics as above. (3) Acute kidney injury Current Visit: Yes Status: Resolved Assessment and plan: Resolved acute kidney injury. Continue to monitor urine output. Continue intravenous fluids. (4) Esophageal varices Current Visit: Yes Status: Chronic Assessment and plan: Stable. Continue proton pump inhibitors and beta blockers. Qualifiers: Esophageal varices type: secondary Esophageal varices bleeding: without bleeding Qualified Code(s): I85.10 - Secondary esophageal varices without bleeding (5) Cirrhosis, alcoholic Current Visit: Yes Status: Chronic Assessment and plan: Complicated by portal hypertension and thrombocytopenia. Continue beta leonarda therapy and xifaxan. Qualifiers: Ascites presence: without ascites Qualified Code(s): K70.30 - Alcoholic cirrhosis of liver without ascites - Subjective Interval history: Patient is unable to provide any history or review of systems due to his encephalopathy and altered mental status. He underwent MRI of his brain today. His blood cultures were positive for gram-negative bacilli today. - Constitutional Vitals: Temp Pulse Resp BP Pulse Ox 98.6 F 83 16 111/68 94 11/15/16 15:57 11/15/16 15:57 11/15/16 15:57 11/15/16 15:57 11/15/16 15:57 General appearance: Absent: answers questions appropriately Exam: Gen.: Lying in bed. Lethargic. Chest: Clear to auscultation bilaterally. No adventitious sounds present. CVS: First and second heart sounds present. No murmurs, rubs or gallops. Abdomen: Soft, nontender, obese. Bowel sounds present. Skin: No decubitus ulcers appreciated. Internal Medicine: Result - Labs CBC & Chem 7: 11/15/16 06:11 11/15/16 05:34 Labs: Short CBC 11/15/16 Range/Units 06:11 WBC 2.9 L (4.3-11.1) K/mcL Hgb 11.1 L D (12.9-16.9) g/dL Hct 33.2 L (37.5-50.1) % Plt Count 49 L (140-400) K/mcL Neutrophils # 2.1 (1.6-8.9) K/mcL BMP 11/15/16 05:34 Sodium 133 L Potassium 3.9 Chloride 105 Carbon Dioxide 19 BUN 15 Creatinine 1.00 Glucose 142 H Calcium 9.4 - ABG Interpretation ABG results: PT/INR, D-dimer PT 14.4 Seconds (9.4-12.1) H 11/15/16 05:34 Consult Discharge Plan - Plan Referrals: Issa Stone MD [Primary Care Provider] -
--- NOTE | 2016-11-15 17:07 | Electrocardiograph Report ---
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
[2016-11-15] MEDS: Piperacillin/Tazobactam 3.375 GM in D5% in Water (Mini-Bag+) 100 ML IVPB SCH (18:09)
[2016-11-16] MEDS: Piperacillin/Tazobactam 3.375 GM in D5% in Water (Mini-Bag+) 100 ML IVPB SCH ×3 (00:04→14:59)
[2016-11-16 06:22] LABS: Hematocrit 32.2 % (37.5-50.1); Lymphocytes # 0.5 K/mcL (0.6-4.6); Mean Corpuscular HGB Conc 34.2 g/dL (31.6-35.5); Mean Corpuscular Hemoglobin 29.3 pg (28.0-33.3); Mean Corpuscular Volume 85.9 fL (83.0-100.0); Mean Platelet Volume 9.4 fL (9.4-12.4); Red Blood Count 3.75 M/mcL (4.19-5.50); Red Cell Distribution Width 18.8 % (11.5-14.5)
[2016-11-16 06:45] LABS: BUN/Creatinine Ratio 15 (6-26); Blood Urea Nitrogen 14 mg/dL (8-26); Carbon Dioxide 23 mEq/L (19-29); Chloride 103 mEq/L (98-109); Glucose 113 mg/dL (70-99); Osmolality,Calculated 275 (280-300); Potassium 3.5 mEq/L (3.5-4.5); Sodium 132 mEq/L (136-145); eGFR For African Americans > 60 (> 60); eGFR For Non-African Americans > 60 (> 60)
[2016-11-16 06:49] LABS: Platelet Count 34 K/mcL (140-400)
[2016-11-16 06:53] LABS: Anisocytosis 1+ (Not Present); Basophils # 0.1 K/mcL (0.0-0.2); Microcytosis Present (Not Present); Monocytes # 0.2 K/mcL (0.0-1.3); Neutrophils # 1.1 K/mcL (1.6-8.9); Platelet Estimate Decreased (Normal)
[2016-11-16 06:54] LABS: Polychromasia 1+ (Not Present); Reactive Lymphocytes Present (Not Present)
[2016-11-16] MEDS: Pantoprazole 40 MG VIAL IVP SCH (08:39)
[2016-11-16] MEDS: Multivit/Ca/Min/Fe/FA 1 TAB TABLET PO SCH (08:39)
[2016-11-16] MEDS: Acetaminophen 325 MG TABLET PO PRN (12:57)
--- NOTE | 2016-11-16 15:05 | Internal Med Progress Note ---
Date of Encounter: 11/16/16 Time of Encounter: 15:01 - Assessment and plan (1) UTI (urinary tract infection) Current Visit: Yes Status: Acute Assessment and plan: Due to Escherichia coli that is pansensitive. Change antibiotics to Unasyn. Monitor response to current antibiotic therapy. Discontinue intravenous fluids. Patient is moderate risk due to need for intravenous antibiotics and he is at risk of sepsis and septic shock. Qualifiers: Urinary tract infection type: acute cystitis Hematuria presence: without hematuria Qualified Code(s): N30.00 - Acute cystitis without hematuria (2) Metabolic encephalopathy Current Visit: Yes Status: Resolved Assessment and plan: Improving mental status. Continue intravenous antibiotic therapy. Continue xifaxan. (3) Acute kidney injury Current Visit: Yes Status: Resolved (4) Esophageal varices Current Visit: Yes Status: Chronic Assessment and plan: Stable. Continue proton pump inhibitors and beta blockers. Qualifiers: Esophageal varices type: secondary Esophageal varices bleeding: without bleeding Qualified Code(s): I85.10 - Secondary esophageal varices without bleeding (5) Cirrhosis, alcoholic Current Visit: Yes Status: Chronic Assessment and plan: Complicated by portal hypertension and thrombocytopenia. Continue beta leonarda therapy and xifaxan. Qualifiers: Ascites presence: without ascites Qualified Code(s): K70.30 - Alcoholic cirrhosis of liver without ascites - Subjective Interval history: Patient is still unable to provide history or review of systems. However, his mental status is improved compared to yesterday. He is more active. According to the staff, the patient has been conversing more. - Constitutional Vitals: Temp Pulse Resp BP Pulse Ox 97.8 F 56 15 133/68 96 11/16/16 11:01 11/16/16 11:01 11/16/16 11:01 11/16/16 11:01 11/16/16 11:01 General appearance: Absent: answers questions appropriately Exam: Gen.: Lying in bed. No acute distress. Chest: Clear to auscultation bilaterally. No adventitious sounds present. CVS: First and second heart sounds present. No murmurs, rubs or gallops. Abdomen: Soft, nontender, obese. Bowel sounds present. No hepatosplenomegaly. Skin: No decubitus ulcers appreciated. Internal Medicine: Result - Labs CBC & Chem 7: 11/16/16 05:57 11/16/16 05:57 Labs: Short CBC 11/16/16 Range/Units 05:57 WBC 1.9 L (4.3-11.1) K/mcL Hgb 11.0 L (12.9-16.9) g/dL Hct 32.2 L (37.5-50.1) % Plt Count 34 L (140-400) K/mcL Neutrophils # 1.1 L (1.6-8.9) K/mcL BMP 11/16/16 05:57 Sodium 132 L Potassium 3.5 Chloride 103 Carbon Dioxide 23 BUN 14 Creatinine 0.95 Glucose 113 H Calcium 9.0 - ABG Interpretation ABG results: PT/INR, D-dimer PT 14.4 Seconds (9.4-12.1) H 11/15/16 05:34 Consult Discharge Plan - Plan Referrals: Issa Stone MD [Primary Care Provider] -
[2016-11-16] MEDS: Ampicillin/Sulbactam 1,500 MG in 0.9 % Sodium Chloride Mini Bag 100 ML IVPB SCH (19:00)
[2016-11-17] MEDS: Acetaminophen 325 MG TABLET PO PRN ×3 (00:54→21:18)
[2016-11-17] MEDS: Ampicillin/Sulbactam 1,500 MG in 0.9 % Sodium Chloride Mini Bag 100 ML IVPB SCH ×3 (00:54→12:33)
[2016-11-17] MEDS ORDERED: Melatonin 3 MG TABLET PO PRN (00:55)
[2016-11-17 05:57] LABS: Hemoglobin 11.1 g/dL (12.9-16.9)
[2016-11-17 05:59] LABS: Hematocrit 32.4 % (37.5-50.1); Mean Corpuscular HGB Conc 34.3 g/dL (31.6-35.5); Mean Corpuscular Hemoglobin 29.1 pg (28.0-33.3); Mean Platelet Volume 10.1 fL (9.4-12.4); Red Blood Count 3.81 M/mcL (4.19-5.50); Red Cell Distribution Width 18.7 % (11.5-14.5)
[2016-11-17 06:09] LABS: Lymphocytes # 0.6 K/mcL (0.6-4.6); Platelet Count 34 K/mcL (140-400)
[2016-11-17 06:14] LABS: Alanine Aminotransferase 30 Units/L (0-55); Albumin/Globulin Ratio 0.5 (1.1-2.2); Alkaline Phosphatase 122 Units/L (38-126); Aspartate Amino Transferase 76 Units/L (5-34); BUN/Creatinine Ratio 16 (6-26); Bilirubin,Total 1.6 mg/dL (0.2-1.2); Blood Urea Nitrogen 14 mg/dL (8-26); Calcium 8.9 mg/dL (8.6-10.8); Carbon Dioxide 25 mEq/L (19-29); Chloride 101 mEq/L (98-109); Globulin 3.8 g/dL (2.4-3.5); Glucose 96 mg/dL (70-99); Osmolality,Calculated 270 (280-300); Potassium 3.3 mEq/L (3.5-4.5); Sodium 130 mEq/L (136-145); Total Protein 5.8 g/dL (6.0-8.3); eGFR For African Americans > 60 (> 60); eGFR For Non-African Americans > 60 (> 60)
[2016-11-17 07:04] LABS: Monocytes # 0.2 K/mcL (0.0-1.3); Neutrophils # 0.8 K/mcL (1.6-8.9)
[2016-11-17 07:06] LABS: Hypochromasia Present (Not Present); Large Platelets Present (Not Present); Reactive Lymphocytes Present (Not Present); Toxic Granulation Present (Not Present)
[2016-11-17 07:07] LABS: Platelet Estimate Decreased (Normal); Polychromasia 1+ (Not Present)
[2016-11-17 07:08] LABS: Anisocytosis 1+ (Not Present); Macrocytosis Present (Not Present); Microcytosis Present (Not Present)
[2016-11-17] MEDS: Multivit/Ca/Min/Fe/FA 1 TAB TABLET PO SCH (08:55)
--- NOTE | 2016-11-17 13:46 | Internal Med Progress Note ---
Date of Encounter: 11/17/16 Time of Encounter: 13:15 - Assessment and plan (1) UTI (urinary tract infection) Current Visit: Yes Status: Acute Assessment and plan: Due to Escherichia coli that is pansensitive. Change to by mouth Augmentin. Monitor response to current antibiotic therapy. If patient is doing well in the next 24 hours, anticipate discharge tomorrow. Patient will require discharge to [facility]/extended care facility according to physical therapy. Patient is moderate risk due to need for monitoring on by mouth antibiotics for continued response to therapy. Total duration of therapy is 14 days. Qualifiers: Urinary tract infection type: acute cystitis Hematuria presence: without hematuria Qualified Code(s): N30.00 - Acute cystitis without hematuria (2) Esophageal varices Current Visit: Yes Status: Chronic Assessment and plan: Stable. Continue proton pump inhibitors and beta blockers. Qualifiers: Esophageal varices type: secondary Esophageal varices bleeding: without bleeding Qualified Code(s): I85.10 - Secondary esophageal varices without bleeding (3) Cirrhosis, alcoholic Current Visit: Yes Status: Chronic Assessment and plan: Complicated by portal hypertension and thrombocytopenia. Continue beta leonarda therapy and xifaxan. Resume by mouth lactulose. Qualifiers: Ascites presence: without ascites Qualified Code(s): K70.30 - Alcoholic cirrhosis of liver without ascites - Subjective Interval history: Patient is able to answer questions appropriately. He is accompanied by his . He has significantly improved. He reports that he has not had a bowel movement in a while. He denies any abdominal pain, nausea or vomiting. Denies any fever or chills. - Constitutional Vitals: Temp Pulse Resp BP Pulse Ox 97.4 F L 58 17 107/67 96 11/17/16 11:26 11/17/16 11:26 11/17/16 11:26 11/17/16 11:26 11/17/16 11:26 General appearance: Absent: answers questions appropriately Exam: Gen.: Lying in bed. No acute distress. Chest: Clear to auscultation bilaterally. No adventitious sounds present. CVS: First and second heart sounds present. No murmurs, rubs or gallops. Abdomen: Soft, nontender, obese. Bowel sounds present. Internal Medicine: Result - Labs CBC & Chem 7: 11/17/16 05:14 11/17/16 05:14 Labs: Short CBC 11/17/16 Range/Units 05:14 WBC 1.6 L (4.3-11.1) K/mcL Hgb 11.1 L (12.9-16.9) g/dL Hct 32.4 L (37.5-50.1) % Plt Count 34 L (140-400) K/mcL Neutrophils # 0.8 L (1.6-8.9) K/mcL BMP 11/17/16 05:14 Sodium 130 L Potassium 3.3 L Chloride 101 Carbon Dioxide 25 BUN 14 Creatinine 0.89 Glucose 96 Calcium 8.9 Liver Function 11/17/16 Range/Units 05:14 Total Bilirubin 1.6 H (0.2-1.2) mg/dL AST 76 H (5-34) Units/L ALT 30 (0-55) Units/L Alkaline Phosphatase 122 (38-126) Units/L Albumin 2.0 L D (3.5-5.0) g/dL - ABG Interpretation ABG results: PT/INR, D-dimer PT 14.4 Seconds (9.4-12.1) H 11/15/16 05:34 Consult Discharge Plan - Plan Referrals: Issa Stone MD [Primary Care Provider] -
[2016-11-17] MEDS: Lactulose Oral Soln 20 GM/30 ML UDC PO SCH ×2 (14:46→21:13)
[2016-11-18 05:01] LABS: Hematocrit 32.7 % (37.5-50.1); Hemoglobin 11.2 g/dL (12.9-16.9); Mean Corpuscular HGB Conc 34.3 g/dL (31.6-35.5); Mean Corpuscular Hemoglobin 29.5 pg (28.0-33.3); Mean Corpuscular Volume 86.1 fL (83.0-100.0); Mean Platelet Volume 10.6 fL (9.4-12.4); Red Cell Distribution Width 19.1 % (11.5-14.5)
[2016-11-18 05:13] LABS: Platelet Count 34 K/mcL (140-400)
[2016-11-18 05:37] LABS: Eosinophils # 0.2 K/mcL (0.0-0.6); Lymphocytes # 0.7 K/mcL (0.6-4.6); Monocytes # 0.4 K/mcL (0.0-1.3); Neutrophils # 0.8 K/mcL (1.6-8.9); Platelet Estimate Decreased (Normal)
[2016-11-18 05:43] LABS: BUN/Creatinine Ratio 17 (6-26); Blood Urea Nitrogen 16 mg/dL (8-26); Calcium 8.7 mg/dL (8.6-10.8); Carbon Dioxide 21 mEq/L (19-29); Chloride 104 mEq/L (98-109); Glucose 98 mg/dL (70-99); Osmolality,Calculated 273 (280-300); Sodium 131 mEq/L (136-145); eGFR For African Americans > 60 (> 60); eGFR For Non-African Americans > 60 (> 60)
[2016-11-18 05:44] LABS: Potassium 4.7 mEq/L (3.5-4.5)
[2016-11-18] MEDS: Lactulose Oral Soln 20 GM/30 ML UDC PO SCH (08:35)
[2016-11-18] MEDS: Multivit/Ca/Min/Fe/FA 1 TAB TABLET PO SCH (08:35)
[2016-11-18 11:21] VITALS: BP 117/78
--- NOTE | 2016-11-18 13:31 | Discharge Summary ---
Date of Encounter: 11/18/16 Time of Encounter: 13:27 - Discharge Diagnosis (1) UTI (urinary tract infection) Priority: Primary Status: Acute Qualifiers: Urinary tract infection type: acute cystitis Hematuria presence: without hematuria Qualified Code(s): N30.00 - Acute cystitis without hematuria (2) Esophageal varices Priority: Secondary Status: Chronic Qualifiers: Esophageal varices type: secondary Esophageal varices bleeding: without bleeding Qualified Code(s): I85.10 - Secondary esophageal varices without bleeding (3) Cirrhosis, alcoholic Priority: Secondary Status: Chronic Qualifiers: Ascites presence: without ascites Qualified Code(s): K70.30 - Alcoholic cirrhosis of liver without ascites - Discharge Medications Prescriptions: Amoxicillin/Clavulanate [Augmentin] 875 mg PO BIDWM #20 tab OxyCODONE Immed Rel [Roxicodone 5 MG] 5 mg PO Q4H PRN #14 PRN Reason: 4-08/28 Pain Rifaximin [Xifaxan] 550 mg PO BID #60 tablet Home Medications: Cholecalciferol (D-3) [Vitamin D] 1,000 unit PO DAILY 11/04/16 [History] DULoxetine [Cymbalta] 30 mg PO HS 11/04/16 [History] Multivitamin [Multi-Day Vitamins] 1 tab PO DAILY 11/04/16 [History] Pantoprazole Sodium [Protonix] 40 mg PO QAM 11/04/16 [History] Propranolol [Inderal] 20 mg PO TID 11/04/16 [History] Amoxicillin/Clavulanate [Augmentin] 875 mg PO BIDWM #20 tab 11/18/16 [Rx] Lactulose 10 gm PO DAILY 11/18/16 [Rx] OxyCODONE Immed Rel [Roxicodone 5 MG] 5 mg PO Q4H PRN #14 11/18/16 [Rx] Rifaximin [Xifaxan] 550 mg PO BID #60 tablet 11/18/16 [Rx] Allergies/Adverse Reactions: 3 Allergy/AdvReac Type Severity Reaction Status Date / Time aspirin [ASA] AdvReac See Verified 11/14/16 08:55 Comments BACTRIM AdvReac Unknown UNKNOWN Uncoded 11/14/16 08:55 - Notes to Outpatient Provider 1. Resume aldactone once his hyperkalemia is better. Also, resume lasix if he becomes fluid overloaded. Date of admission: 11/14/16 15:08 Primary care physician: Issa Stone MD Consults: 11/15/16 11:46 Consult to Physical Therapy [CONS] Routine Comment: Evaluate, develop and implement POC Reason for Consult: weakness 11/15/16 11:47 Consult to Occupational Therapy [CONS] Routine Comment: Evaluate, develop and implement POC Reason for Consult: weakness Discharging clinician: Andrés Coffey Anticipated date of discharge: 11/18/16 - Patient Status Disposition: Transfer SNF Condition: Fair Functional capacity at discharge: uses cane/walker Overall status at discharge: patient is progressing back to baseline - Discharge Instructions Follow Up With: Issa Stone MD [Primary Care Provider] - - Diet and Activity Activity: as per physical therapy, increase activity as tolerated Diet: low salt diet Hospital course: Mr. Cha is a 66 year old male with history of alcoholic cirrhosis, portal HTN, HTN was brought to ER by due to confusion, weakness. He was found to have UTI in the ER and was admitted for the same. He was placed on antibiotics. His urine and blood cultures were positive for E.coli that is pansensitive. His repeat blood cultures were negative on antibiotics. His antibiotics were de- escalated and he did well without any fevers or leukocytosis. His mental status improved with hydration. He also had STERLING on presentation that resolved with hydration and discontinuation of lactulose. He has been started on xifaxan for his hyperammonemia and lactulose dose has been reduced to avoid dehydration. His aldactone is held on discharge due to mild hyperkalemia. He was evaluated by PT & OT and has been deemed to need rehab placement. He is medically stable and will be discharged pending bed availability. - Time Spent with Patient Total time spent providing and/or coordinating discharge services: Greater than 30 minutes (50 min) - Constitutional Vitals: Temp Pulse Resp BP Pulse Ox 98.1 F 52 16 117/78 96 11/18/16 11:17 11/18/16 11:17 11/18/16 11:17 11/18/16 11:17 11/18/16 11:17 General appearance: Absent: answers questions appropriately - Head Head exam: Present: atraumatic, normocephalic - Respiratory Respiratory exam: Present: CTAB. Absent: accessory muscle use, rales, rhonchi, wheezes - GI/Abdominal GI/Abdominal exam: Present: normal bowel sounds, soft, no peritoneal signs. Absent: distended, tenderness
--- NOTE | 2016-11-18 13:37 | Physician Discharge Referral ---
ExtendedCare Referral Info Transfer To: SNF Provider in Charge: Dr. Andrés Coffey Provider in Charge after Transfer: PCP Institutional Level of Care: Skilled - Diagnosis (1) UTI (urinary tract infection) Priority: Primary Status: Acute (2) Esophageal varices Priority: Secondary Status: Chronic (3) Cirrhosis, alcoholic Priority: Secondary Status: Chronic (4) Encephalopathy Priority: Secondary Status: Resolved (5) Acute kidney injury Priority: Secondary Status: Resolved Expected Duration of Placement: 1-2 weeks Prognosis: Fair Aware of Diagnosis: Patient, Family Aware of Prognosis: Patient, Family - Transfer Medications Prescriptions: Amoxicillin/Clavulanate [Augmentin] 875 mg PO BIDWM #20 tab OxyCODONE Immed Rel [Roxicodone 5 MG] 5 mg PO Q4H PRN #14 PRN Reason: -08/28 Pain Rifaximin [Xifaxan] 550 mg PO BID #60 tablet Home Medications: Cholecalciferol (D-3) [Vitamin D] 1,000 unit PO DAILY 11/04/16 [History] DULoxetine [Cymbalta] 30 mg PO HS 11/04/16 [History] Multivitamin [Multi-Day Vitamins] 1 tab PO DAILY 11/04/16 [History] Pantoprazole Sodium [Protonix] 40 mg PO QAM 11/04/16 [History] Propranolol [Inderal] 20 mg PO TID 11/04/16 [History] Amoxicillin/Clavulanate [Augmentin] 875 mg PO BIDWM #20 tab 11/18/16 [Rx] Lactulose 10 gm PO DAILY 11/18/16 [Rx] OxyCODONE Immed Rel [Roxicodone 5 MG] 5 mg PO Q4H PRN #14 11/18/16 [Rx] Rifaximin [Xifaxan] 550 mg PO BID #60 tablet 11/18/16 [Rx] Allergies/Adverse Reactions: 3 Allergy/AdvReac Type Severity Reaction Status Date / Time aspirin [ASA] AdvReac See Verified 11/14/16 08:55 Comments BACTRIM AdvReac Unknown UNKNOWN Uncoded 11/14/16 08:55 - Respiratory Orders Smoking Cessation: Smoking cessation has been advised. For more information, call the [place] Tobacco Quit Line at 1-475-ATIO-NOW. - Ancillary Orders May use pressure relief devices daily prn, May go on MARKUS w/family/respon democrat w /meds at nurse discretion PRN, May consult with Dentist, Grinder Set Up Operator Internal, [employer] Erp Developer PRN - Advance Directives Code Status: DNR-Arrest/Don't Intubate - Mobility Orders Chair, Ambulate - Rehabiliation Orders Rehab Potential: Good Rehab Orders: Sternal Precautions, ROM Exercises, Evaluation for Physical Therapy, Evaluation for Occupational Therapy - Treatments Skin tear care topically daily PRN per policy, May check for fecal impaction rectally daily PRN, Fleet enema rectally every other day PRN cleansing purposes - Diet Orders No Added Salt (LINNEA), Cardiac CERTIFICATION: I certify that the transfer of the above named patient to an Extended Care Facility is necessary for the continuing treatment of the diagnosis listed. The above information is true and accurate reflection of patient's current condition. Confidential - Redisclosure prohibited without a patient's written consent.
== END 2016-11-18 16:26 | DRG 689 ==
LOC: EMEROO 08:52 → 3BNU 08:52 → SUATTDRO 12:49 → 3BNU 14:20
PROVIDERS: ADMIT Internal Medicine; ATTEND Internal Medicine Sleep Medicine